=== PATIENT | male | born 1975 | race Hispanic/Latino ===

== ENCOUNTER 2016-08-07 16:08 | Inpatient (IN) | payer OTHER ==
[~2016-08-07] VITALS: Ht 175.3 cm; Wt 79.4 kg
[~2016-08-07 16:08] MED LIST: AMBIEN 10MG10 MG PO; ATORVASTATIN CA40 MG PO; BENZTROPINE MESY2 M1 PO; CLONAZEPAM1 M2 PO; CLOPIDOGREL75 MG PO; CYCLOBENZAPRINE5 M1 PO; DIVALPROEX SOD500 MG PO; ENSURE PLUS 23237 ML PO; FLONASE120 SPRAY/ NASB; FOLIC ACID 1 MG PO; INVEGA6 MG PO; LOVENOX120 MG/0.1 SQ; METOPROLOL TART25 M1 PO; NEXIUM 40MG40 MG PO; PATANOL 5 ML5 ML OPH; PERCOCET 325 MG1 TA2 PO; PERCOCET 5-3251 EACH PO; PRINIVIL 5MG5 MG PO; SEROQUEL 100MG100 MG PO; STROVITE ONE1 TAB PO; TRAMADOL HCL E100 MG PO; TRAMADOL HCL50 M1 PO; TRAMADOL50 MG PO; VENLAFAXINE HYD75 M1 PO; VESICARE 10MG10 MG PO; WARFARIN SODIUM5 M1 PO; XARELTO20 M1 PO
--- NOTE | 2016-08-07 16:24 | NUR ---
RECEIVED 41 YO MALE BIBA FROM HOME WITH HX OF CAD, CABG WITH C/O NON-RADIATING LEFT SIDED CHEST PAIN X ONE HOUR. PT ALSO HAS HX OF DVT AND S/O BILATERAL LOWER EXTREMITY PAIN AND SWELLING. PT STATES PAIN FEELS LIKE ITS A DVT.
[2016-08-07] MEDS ORDERED: TRAMADOL HCL E100 MG PO (16:30)
[2016-08-07] MEDS ORDERED: STROVITE ONE C1 EACH PO (16:30)
[2016-08-07] MEDS ORDERED: OXYCODONE-ACET1 EACH PO (16:30)
[2016-08-07] MEDS ORDERED: FOLIC ACID1 M1 PO (16:31)
--- NOTE | 2016-08-07 16:59 | ED CARDIAC/CP/PALPITATIONS ---
History of Present Illness General Chief Complaint: Chest Pain Stated Complaint: BIBA FOR CHEST PAIN Source: patient, old records Exam Limitations: no limitations Vital Signs & Intake/Output Vital Signs & Intake/Output Vital Signs Date Time Temp Pulse Resp B/P Pulse O2 O2 Flow FiO2 Ox Delivery Rate 08/08 0130 54 130/90 08/08 0035 98.2 62 20 130/90 98 Room Air 08/07 2302 98.6 72 20 139/86 95 Room Air 08/07 2104 66 16 158/92 98 Room Air 08/07 1902 98 Room Air 08/07 1818 96.1 53 16 125/73 100 Room Air 08/07 1623 96.2 62 20 154/88 99 Room Air ED Intake and Output 08/08 0000 08/07 1200 Intake Total 0 Output Total Balance 0 Intake, IV 0 Patient 175 lb Weight Allergies Coded Allergies: hydrocodone (PER PT FEELS DIZZY 06/03/16) ketorolac (From TORADOL) (PER PT "FEEL PAIN AND SHAKEY" 06/03/16) nitroglycerin (From NITRO-BID) (PER PT "MY BODY FEELS FUNNY AND MY HEAD GONNA EXPLODE UP" 06/03/16) Triage Note: RECEIVED 41 YO MALE BIBA FROM HOME WITH HX OF CAD, CABG WITH C/O NON-RADIATING LEFT SIDED CHEST PAIN X ONE HOUR. PT ALSO HAS HX OF DVT AND S/O BILATERAL LOWER EXTREMITY PAIN AND SWELLING. PT STATES PAIN FEELS LIKE ITS A DVT. Triage Nurses Notes Reviewed? yes HPI: Patient is a 41 year old male presents complaining of sharp left sided chest pain and bilateral lower extremity pain. Leg pain onset yesterday, chest pain onset approximately 40 minutes prior to arrival. Pain is a sharp pain radiates to the left shoulder, no exacerbating or allevaiting factors. Chest pain is currently moderate. Patient took Percocet yesterday with moderate improvement of his leg pain, has not taken any medication today for his symptoms. Leg pain feels similar to previos DVT. Currently on Coumadin, reports he has been compliant with his regimen. Leg pain increases with exertion, no change in his chest pain with ambulation. No current dyspnea. (FRANKI LYONS,HARRIS) Reconcile Medications Atorvastatin Calcium (Lipitor) 40 MG TAB 1 TAB PO DAILY CHOLESTEROL (Reported ) Benztropine Mesylate 2 MG TABLET 1 TAB PO BID MENTAL HEALTH (Reported) Clonazepam 1 MG TABLET 1 TAB PO BID ANXIETY (Reported) CYCLOBENZAPRINE HCL (Cyclobenzaprine Hydrochloride) 5 MG TAB 1 TAB PO TID PRN MUSCLE SPASMS (Reported) Divalproex Sodium (Divalproex Sodium ER) [address] 1 TAB PO BID MENTAL HEALTH (Reported) Esomeprazole (Nexium) 40 MG CAP 1 PAC PO DAILY GI (Reported) Folic Acid 1 MG TABLET 1 TAB PO DAILY SUPPLEMENT (Reported) LACTOSE-REDUCED FOOD (Ensure Plus 237 Ml) 237 ML LIQ 237 ML PO DAILY SUPPLEMENT (Reported) Lisinopril (Prinivil) 5 MG TAB 1 TAB PO DAILY BP (Reported) Metoprolol Tartrate 25 MG TABLET 1 TAB PO BID HEART (Reported) Mv,Min #10/FA/D3/Alip Acid/Lut (Strovite One Caplet) 1 MG-1,000 UNIT-15 MG-5 MG TABLET 1 TAB PO DAILY SUPPLEMENT (Reported) Paliperidone (Invega) 6 MG TAB.ER.24 1 TAB PO QPM MENTAL HEALTH (Reported) Quetiapine Fumarate (Seroquel) 100 MG TAB 1 TAB PO QHS SLEEP (Reported) Solifenacin Succinate (Vesicare) 10 MG TAB 1 TAB PO QHS BLADDER (Reported) Tramadol HCl (Tramadol HCl ER) 100 MG TAB.ER.24H 1 TAB PO DAILY PAIN ( Reported) VENLAFAXINE HCL (Venlafaxine HCl ER) 75 MG CER 1 CAP PO DAILY MENTAL HEALTH ( Reported) Warfarin Sodium 5 MG TABLET 1 TAB PO 1700 BLOOD THINNER (Reported) Zolpidem Tartrate (Ambien 10MG) 10 MG TAB 1 TAB PO QPM SLEEP (Reported) (KIM QUILES,FAITH Lyon) Past History Travel History Traveled to [place] past 21 day No Medical History Any Pertinent Medical History? 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 FATHER (Cardiac disease). FATHER (Stroke/CVA). Hx Contributory? Yes (HARRIS KOHLER) Review of Systems Review of Systems Constitutional: Denies: chills, fever. EENTM: Reports: no symptoms. Respiratory: Denies: cough, short of breath. Cardiovascular: Reports: see HPI. GI: Denies: abdominal pain, nausea, vomiting. Genitourinary: Reports: no symptoms. Musculoskeletal: Reports: see HPI. Denies: back pain, neck pain. Skin: Reports: no symptoms. Neurological/Psychological: Denies: headache, numbness. Hematologic/Endocrine: Denies: bruising, bleeding. Immunologic/Allergic: Denies: splenectomy. (HARRIS KOHLER) Physical Exam Physical Exam General Appearance: well developed/nourished, alert, awake Head: atraumatic, normal appearance Eyes: Bilateral: normal appearance, PERRL, EOMI. Ears, Nose, Throat: normal pharynx, normal ENT inspection, hearing grossly normal Neck: normal inspection, supple, full range of motion Respiratory: normal breath sounds, chest non-tender, no respiratory distress, lungs clear Cardiovascular: regular rate/rhythm (occasional premature beat), no appreciable murmur Peripheral Pulses: 2+ radial (R), 2+ radial (L), 2+ dorsalis pedis (R), 2+ dorsalis pedis (L) Gastrointestinal: soft, non-tender Back: normal inspection, normal range of motion Extremities: normal inspection, normal capillary refill, normal range of motion, trace bilateral lower extremity edema Neurologic/Psych: no motor/sensory deficits, awake, alert, oriented x 3 Skin: intact, normal color, warm/dry Lymphatic: no anterior cervical duane Core Measures ACS in differential dx? Yes ASA ordered for poss ACS? No-d/t known allergy Severe Sepsis Present: No Septic Shock Present: No (HARRIS KOHLER) Progress Differential Diagnosis: AMI, aortic dissection, CHF/pulm edema, costochondritis, musculoskeletal pain, myocarditis, pericarditis, pneumonia, pneumothorax, PSVT, pulmonary embolism, PUD/GERD, sepsis, unstable angina, V-fib/V-Tach, DVT, drug- seeking Plan of Care: Orders Procedure Date/time Status Heart Healthy Diet 08/08 B Active TROPONIN LEVEL 08/08 0600 Active PROTHROMBIN TIME 08/08 0600 Active CBC WITHOUT DIFFERENTIAL 08/08 06 Active BASIC ELECTROLYTES PLUS BUN&CR 08/08 0600 Active EKG 08/08 0600 Active PARTIAL THROMBOPLASTIN TIME 08/08 0330 Active Pathway - chart 08/07 2358 Active House Staff 08/07 2358 Active Code Status 08/07 2358 Active TROPONIN LEVEL 08/07 2354 Complete EKG 08/07 2354 Active Vital Signs 08/07 2344 Active Teach/Educate 08/07 2344 Active Nutritional Intake, Monitor 08/07 2344 Active Isolation 08/07 2344 Active Intake & Output 08/07 2344 Active Patient Care Conference 08/07 2344 Active Activity/Ambulation 08/07 2344 Active Patient Data 08/07 2153 Active D-DIMER 08/07 2055 Complete Add-on Test (ER Only) 08/07 2035 Active Saline Lock 08/07 2026 Active Misc Message 08/07 2026 Active ED Holding Orders 08/07 2026 Active Admit to inpatient 08/07 2026 Active Vital Signs 08/07 202 Active Code Status 08/07 202 Complete Intake & Output 08/07 1830 Active PARTIAL THROMBOPLASTIN TIME 08/07 1812 Complete Telemetry/Fitness Centre Manager 08/07 1659 Active URINE DRUG SCREEN FOR ER ONLY 08/07 1659 Complete TROPONIN LEVEL 08/07 1659 Complete PROTHROMBIN TIME 08/07 1659 Complete COMPREHENSIVE METABOLIC PANEL 08/07 1659 Complete CBC WITHOUT DIFFERENTIAL 08/07 1659 Complete EKG 08/07 1609 Active Current Medications Sig/Aly Start time Last Medication Dose Stop Time Status Admin Oxybutynin Chloride 10 MG QPM 08/08 2200 AC (Ditropan) Atorvastatin Calcium 40 MG DAILY 08/08 1000 AC (Lipitor) Benztropine Mesylate 2 MG BID 08/08 1000 AC (Cogentin 1 MG Tablet) Folic Acid 1 MG DAILY 08/08 1000 AC (Folic Acid) Lisinopril 5 MG DAILY 08/08 1000 AC (Prinivil) Multivitamins 1 TAB DAILY 12/31 1000 AC (Theragran Vitamins) Venlafaxine HCl 75 MG DAILY 08/08 1000 AC (Effexor Xr) Omeprazole 40 MG DAILY AC 08/08 0700 AC (Prilosec) Metoprolol Tartrate 25 MG BID 08/07 2347 AC (Lopressor) Cyclobenzaprine HCl 5 MG TIDPRN PRN 08/07 234 AC (Flexeril 5MG Tab) Sodium Chloride 1,000 ML Q10H 08/07 2345 AC (Normal Saline 0.9%) 08/08 0944 Morphine Sulfate 2 MG ONCE ONE 08/07 1700 CAN (Morphine) 08/07 170 Laboratory Tests 08/08/16 0055: Troponin I < 0.01 08/07/162054: D-Dimer < 200 08/07/161811: Anion Gap 16, Estimated GFR > 60, BUN/Creatinine Ratio 16.2, Glucose 77, Calcium 10.2, Total Bilirubin 0.8, AST 54, ALT 46, Alkaline Phosphatase 53, Troponin I < 0.01, Total Protein 10.1 H, Albumin 5.5 H, Globulin 4.6 H, Albumin/Globulin Ratio 1.2, PT 19.1 H, INR 1.83 H, APTT 27, CBC w Diff NO MAN DIFF REQ, RBC 4.67 L, MCV 88.3, MCH 29.1, RDW 15.0 H, Gran % 62.6, Lymphocytes % 29.2, Monocytes % 6.7, Eosinophils % 1.2, Basophils % 0.3, Absolute Granulocytes 3.9, Absolute Lymphocytes 1.8, Absolute Monocytes 0.4, Absolute Eosinophils 0.1, Absolute Basophils 0, PUBS MCHC 33.0 08/07/16 170: Urine Opiates Screen < 100.00, Methadone Screen < 40, Barbiturate Screen < 60, Ur Phencyclidine Scrn < 6.00, Amphetamines Screen < 100, U Benzodiazepines Scrn < 85, Urine Cocaine Screen < 50, Urine Cannabis Screen < 5.00 1930: Results of labs and ultrasound discussed with patient. CTA ordered due to worsening dvt and patient's episode of sharp chest pain. Heparin ordered for treatment of patient's DVT. Patient subtherapeutic INR currently. Unclear if DVT is worse due to subtherapeutic INR or if patient is failing coumadin therapy. Will start on heaprin and admit to rule out ACS and for further treatment of his DVT. Dr. Christiansen discussed patient with Dr. Robison for admission. (FRANKI LYONS,HARRIS) Diagnostic Imaging: Viewed by Me: Ultrasound. Discussed w/RAD: Ultrasound. Radiology Impression: PATIENT: DEION TABARES PRESENT AGE: 41 PATIENT ACCOUNT NO: [id number] : 73 LOCATION: [facility] ORDERING PHYSICIAN: HARRIS LYONS SERVICE DATE: 08/07/16 EXAM TYPE: US - US-EXT BILAT VENOUS DOPPLER EXAMINATION: US TRIPLEX LOWER EXTREMITY, BILATERAL CLINICAL INFORMATION: Bilateral lower extremity pain with history of DVT. COMPARISON: Doppler ultrasound 11/29/2015. TECHNIQUE: Color-flow triplex imaging with spectral analysis and compression Doppler were performed on the bilateral lower extremities. FINDINGS: Partially occlusive deep venous thrombosis extending from the right lower femoral vein to the right common femoral vein. No residual deep venous thrombosis within the right popliteal vein which was seen on the previous study. The remaining veins of the right lower extremity are patent. Partially occlusive deep venous thrombosis extending from the left popliteal vein to the left common femoral vein. DVT on the previous examination extending to the level of the upper left femoral vein and is slightly progressed since that time. IMPRESSION: Redemonstrated bilateral partially occlusive deep venous thrombosis, slightly improved within the right lower extremity and slightly progressed within the left lower extremity as discussed above. DICTATED BY: ELIOT LOTT MD DATE/TIME DICTATED:08/07/161899 STRATEGIC INTELLIGENCE OFFICER:SANDI DATE/TIME TRANSCRIBED:08/07/161899 CONFIDENTIAL, DO NOT COPY WITHOUT APPROPRIATE AUTHORIZATION. <Electronically signed in Other Vendor System> SIGNED BY: ELIOT LOTT MD 08/07/161916, PATIENT: DEION TABARES PRESENT AGE: 41 PATIENT ACCOUNT NO: [id number] : 73 LOCATION: [facility] ORDERING PHYSICIAN: HARRIS LYONS SERVICE DATE: 08/07/16 EXAM TYPE: CAT - CTA CHEST- PULMONARY EMBOLISM EXAMINATION: CT ANGIOGRAM OF THE CHEST WITH AND WITHOUT CONTRAST (CT PULMONARY ANGIOGRAM FOR PE) CLINICAL INFORMATION: Chest pain COMPARISON: Portable chest 08/07/2016 TECHNIQUE: Prior to contrast administration, noncontrast localization images were obtained. Subsequently, multidetector volumetric imaging was performed from the thoracic inlet to below the diaphragms following the administration of 73 mL Optiray 320 intravenous contrast. No contrast reaction reported Sagittal, coronal, and MIP oblique sagittal reformatted images were obtained on the CT workstation, uploaded to PACS, and reviewed. Total exam dose-length product 402.3 mGy-cm FINDINGS: QUALITY OF STUDY/CONTRAST BOLUS: Satisfactory. PULMONARY ARTERIES: No central or segmental pulmonary emboli. THORACIC AORTA: No aneurysm or dissection. LUNG: No focal consolidation, nodules or masses. No acute infiltrate. There is a small linear scar at the anterior right middle lobe. PLEURA: No pleural effusion or pneumothorax. MEDIASTINUM: Normal heart size. No pericardial effusion. No hilar or mediastinal lymphadenopathy. No evidence of septal bowing or right heart strain. CHEST WALL/AXILLA: No axillary or internal mammary lymphadenopathy. OSSEOUS STRUCTURES: Status post median sternotomy. UPPER ABDOMEN: Unremarkable. No reflux of contrast into the hepatic veins to suggest elevated right heart pressures. IMPRESSION: No evidence of pulmonary embolism. No acute change of the chest. VTE: negative DICTATED BY: NORMAN PANIAGUA MD DATE/ TIME DICTATED:08/07/162041 STRATEGIC INTELLIGENCE OFFICER:SANDI DATE/TIME TRANSCRIBED: 08/07/162041 CONFIDENTIAL, DO NOT COPY WITHOUT APPROPRIATE AUTHORIZATION. < Electronically signed in Other Vendor System> SIGNED BY: NORMAN PANIAGUA MD 2049 CXR Impression: PATIENT: DEION TABARES PRESENT AGE : 41 PATIENT ACCOUNT NO: [id number] : 73 LOCATION: [facility] ORDERING PHYSICIAN: HARRIS LYONS SERVICE DATE: 08/07/16 EXAM TYPE: RAD - XRY-PORTABLE CHEST XRAY EXAMINATION: XR PORTABLE CHEST CLINICAL INFORMATION: Chest pain COMPARISON: Chest x-ray 06/03/2016 TECHNIQUE: Portable view of the chest was obtained. 5:32 PM FINDINGS: Status post median sternotomy. Heart size is normal. No pulmonary vascular congestion. Lungs are clear. No pleural effusion or pneumothorax. IMPRESSION: No acute abnormality of the chest. DICTATED BY: NORMAN PANIAGUA MD DATE/TIME DICTATED:08/07/161743 STRATEGIC INTELLIGENCE OFFICER :CHAVEZ DATE/TIME TRANSCRIBED:08/07/161743 CONFIDENTIAL, DO NOT COPY WITHOUT APPROPRIATE AUTHORIZATION. <Electronically signed in Other Vendor System> SIGNED BY: NORMAN PANIAGUA MD 08/07/16 2087 Initial ED EKG: normal sinus rhythm approximately 60 bpm, normal axis, normal intervals, 2 pvc's present. no acute st/t wave changes compared to previous ekg. Prior EKG: unchanged Rhythm Strip: normal sinus rhythm (HARRIS KOHLER) Departure Departure Disposition: STILL A PATIENT Condition: Stable Clinical Impression Primary Impression: DVT (deep venous thrombosis) Qualifiers: DVT location: lower extremity Affected thrombotic vein of extremity : unspecified lower extremity proximal vein Laterality: bilateral Chronicity: unspecified Qualified Code: I82.4Y3 - Acute embolism and thrombosis of unspecified deep veins of proximal lower extremity, bilateral Secondary Impressions: Chest pain syndrome Referrals: KIMBERLY TABARES MD (PCP/Family) Referred to [facility] as new patient No Departure Forms: Customer Survey General Discharge Information Admission Note Spoke With: KESHIA ROBISON MD Documentation of Exam: Documentation of any treatments & extenuating circumstances including Concerns Regarding Discharge (functional status, medication knowledge or non-compliance, living conditions, etc.) that warrant an admission rather than observation: Serial EKG, serial troponins, continuous cardiac monitoring, IV heparin as patient is on coumadin, cardiology consultation. Consider vascular or hematology consultation (HARRIS KOHLER) PA/MANAGER OPERATIONS RESEARCH Co-Sign Statement Statement: ED Attending supervision documentation- [] I saw and evaluated the patient. I have also reviewed all the pertinent lab results and diagnostic results. I agree with the findings and the plan of care as documented in the PA's/MANAGER OPERATIONS RESEARCH's documentation. [x] I have reviewed the ED Record and agree with the PA's/MANAGER OPERATIONS RESEARCH's documentation. [] Additions or exceptions (if any) to the PAs/MANAGER OPERATIONS RESEARCH's note and plan are summarized below: [] (KIM QUILES,FAITH Lyon) Critical Care Note Critical Care Note Critical Care Time: non-applicable (HARRIS KOHLER) ED Attending supervision documentation- [] I saw and evaluated the patient. I have also reviewed all the pertinent lab results and diagnostic results. I agree with the findings and the plan of care as documented in the PA's/MANAGER OPERATIONS RESEARCH's documentation. [x] I have reviewed the ED Record and agree with the PA's/MANAGER OPERATIONS RESEARCH's documentation. [] Additions or exceptions (if any) to the PAs/MANAGER OPERATIONS RESEARCH's note and plan are summarized below: [] (KIM QUILES,FAITH Lyon) Critical Care Note Critical Care Note Critical Care Time: non-applicable (FRANKI LYONS,HARRIS)
--- NOTE | 2016-08-07 17:03 | NUR ---
PT EVALUATED BY PADMINI LYONS
--- NOTE | 2016-08-07 17:48 | RADIOLOGY REPORT ---
EXAMINATION: XR PORTABLE CHEST CLINICAL INFORMATION: Chest pain COMPARISON: Chest x-ray 06/03/2016 TECHNIQUE: Portable view of the chest was obtained. 5:32 PM FINDINGS: Status post median sternotomy. Heart size is normal. No pulmonary vascular congestion. Lungs are clear. No pleural effusion or pneumothorax. IMPRESSION: No acute abnormality of the chest.
--- NOTE | 2016-08-07 18:18 | NUR ---
BLOOD DRAWN DIRECTED BY DELORES Pal RN UNABLE TO PLACE IV BY THIS RN AND DELORES Pal RN
--- NOTE | 2016-08-07 18:36 | NUR ---
PT SENT TO [facility]
[2016-08-07 18:44] LABS: ABSOLUTE BASOPHIL COUNT 0 /CUMM (0.0-0.2); ABSOLUTE EOSINOPHIL COUNT 0.1 /CUMM (0.0-0.7); ABSOLUTE GRANULOCYTE CT 3.9 /CUMM (1.4-6.5); ABSOLUTE LYMPH COUNT 1.8 /CUMM (1.2-3.4); ABSOLUTE MONOCYTE COUNT 0.4 /CUMM (0.10-0.60); BASOPHIL % 0.3 % (0.0-2.0); EOSINOPHIL % 1.2 % (0-5); GRANULOCYTE % 62.6 % (42.2-75.2); HEMATOCRIT 41.2 % (42-52); MEAN CORPUSCULAR HGB 29.1 PG (27.0-31.0); MEAN CORPUSCULAR VOLUME 88.3 FL (80.0-94.0); RED BLOOD CELL CT 4.67 /CUMM (4.70-6.10); WHITE BLOOD CELL COUNT 6.2 /CUMM (4.8-10.8)
[2016-08-07 18:49] LABS: PT 19.1 SEC (9.4-12.5)
--- NOTE | 2016-08-07 19:01 | NUR ---
PT BACK FROM [facility] PT MEDICATED WITH 2 MG MORPHINE IM FOR PAIN
--- NOTE | 2016-08-07 19:17 | ULTRASOUND REPORT ---
EXAMINATION: US TRIPLEX LOWER EXTREMITY, BILATERAL CLINICAL INFORMATION: Bilateral lower extremity pain with history of DVT. COMPARISON: Doppler ultrasound 11/29/2015. TECHNIQUE: Color-flow triplex imaging with spectral analysis and compression Doppler were performed on the bilateral lower extremities. FINDINGS: Partially occlusive deep venous thrombosis extending from the right lower femoral vein to the right common femoral vein. No residual deep venous thrombosis within the right popliteal vein which was seen on the previous study. The remaining veins of the right lower extremity are patent. Partially occlusive deep venous thrombosis extending from the left popliteal vein to the left common femoral vein. DVT on the previous examination extending to the level of the upper left femoral vein and is slightly progressed since that time. IMPRESSION: Redemonstrated bilateral partially occlusive deep venous thrombosis, slightly improved within the right lower extremity and slightly progressed within the left lower extremity as discussed above.
--- NOTE | 2016-08-07 20:50 | CT SCAN REPORT ---
EXAMINATION: CT ANGIOGRAM OF THE CHEST WITH AND WITHOUT CONTRAST (CT PULMONARY ANGIOGRAM FOR PE) CLINICAL INFORMATION: Chest pain COMPARISON: Portable chest 08/07/2016 TECHNIQUE: Prior to contrast administration, noncontrast localization images were obtained. Subsequently, multidetector volumetric imaging was performed from the thoracic inlet to below the diaphragms following the administration of 73 mL Optiray 320 intravenous contrast. No contrast reaction reported Sagittal, coronal, and MIP oblique sagittal reformatted images were obtained on the CT workstation, uploaded to PACS, and reviewed. Total exam dose-length product 402.3 mGy-cm FINDINGS: QUALITY OF STUDY/CONTRAST BOLUS: Satisfactory. PULMONARY ARTERIES: No central or segmental pulmonary emboli. THORACIC AORTA: No aneurysm or dissection. LUNG: No focal consolidation, nodules or masses. No acute infiltrate. There is a small linear scar at the anterior right middle lobe. PLEURA: No pleural effusion or pneumothorax. MEDIASTINUM: Normal heart size. No pericardial effusion. No hilar or mediastinal lymphadenopathy. No evidence of septal bowing or right heart strain. CHEST WALL/AXILLA: No axillary or internal mammary lymphadenopathy. OSSEOUS STRUCTURES: Status post median sternotomy. UPPER ABDOMEN: Unremarkable. No reflux of contrast into the hepatic veins to suggest elevated right heart pressures. IMPRESSION: No evidence of pulmonary embolism. No acute change of the chest. VTE: negative
[2016-08-07 20:55] LABS: PTT 27 SEC (25-37)
--- NOTE | 2016-08-07 21:25 | NUR ---
HEPARIN DRIP STARTED. PT MEDICATED WITH 5000 UNITS HEPARIN IV AND HEPARIN DRIP STARTED AT 1300 UNITS/HR PER ORDERS.
--- NOTE | 2016-08-07 22:11 | NUR ---
PT GOING TO ROOM 180-2.
--- NOTE | 2016-08-07 22:18 | History & Physical ---
WEN SAMUEL MD 08/07/16 2212: General Information and HPI Source of Information: patient, old records Exam Limitations: no limitations History of Present Illness: Patient is a 41-year-old male, with past medical history of CVA residue left upper limb weakness, coronary artery disease status post stent placement in 2004 , CABG, mitral valve repair in 2000, infective endocarditis, aortic valve surgery in 2004, IV drug abuse, hepatitis C , DVT status post IVC filter placement , presented with chief complaints of left-sided chest pain and bilateral lower extremities pain since a day. He has lower leg pain, started a day ago , similar to previous DVT, took Percocet for it with slight improvement. Presently on, coumadin therapy. He is following coumadin clinic every weekly He was going to [place] and he started having chest pain . The chest pain was sharp in nature, located in the left side of the chest, radiating to left shoulder. There is no aggravating and relieving factors. At the time of examination it was moderte 5/10. Patient also complaining of dry cough, shortness of breath, abdominal pain, swelling in the legs, chills. He denies fever, dizziness, new neurological deficit, blurry vision, difficulty in swallowing, incontinence of stool and the urine, diarrhea, constipation. According to him, hepatitis C is cured as he took complete 1 year of treatment. He also claims that he has history of antiphospholipid antibody syndrome for which he is following Dr. Felix Ennis at [place]. Personal history -denies smoking Allergies- aspirin(rash), nitroglycerin Family history -brother/father/mother of NE; mother had bipolar disorder. Allergies/Medications Allergies: Coded Allergies: hydrocodone (PER PT FEELS DIZZY 06/03/16) ketorolac (From TORADOL) (PER PT "FEEL PAIN AND SHAKEY" 06/03/16) nitroglycerin (From NITRO-BID) (PER PT "MY BODY FEELS FUNNY AND MY HEAD GONNA EXPLODE UP" 06/03/16) Home Med list Atorvastatin Calcium (Lipitor) 40 MG TAB 1 TAB PO DAILY CHOLESTEROL (Reported ) Benztropine Mesylate 2 MG TABLET 1 TAB PO BID MENTAL HEALTH (Reported) Clonazepam 1 MG TABLET 1 TAB PO BID ANXIETY (Reported) CYCLOBENZAPRINE HCL (Cyclobenzaprine Hydrochloride) 5 MG TAB 1 TAB PO TID PRN MUSCLE SPASMS (Reported) Divalproex Sodium (Divalproex Sodium ER) [address] 1 TAB PO BID MENTAL HEALTH (Reported) Esomeprazole (Nexium) 40 MG CAP 1 PAC PO DAILY GI (Reported) Folic Acid 1 MG TABLET 1 TAB PO DAILY SUPPLEMENT (Reported) LACTOSE-REDUCED FOOD (Ensure Plus 237 Ml) 237 ML LIQ 237 ML PO DAILY SUPPLEMENT (Reported) Lisinopril (Prinivil) 5 MG TAB 1 TAB PO DAILY BP (Reported) Metoprolol Tartrate 25 MG TABLET 1 TAB PO BID HEART (Reported) Mv,Min #10/FA/D3/Alip Acid/Lut (Strovite One Caplet) 1 MG-1,000 UNIT-15 MG-5 MG TABLET 1 TAB PO DAILY SUPPLEMENT (Reported) Paliperidone (Invega) 6 MG TAB.ER.24 1 TAB PO QPM MENTAL HEALTH (Reported) Quetiapine Fumarate (Seroquel) 100 MG TAB 1 TAB PO QHS SLEEP (Reported) Solifenacin Succinate (Vesicare) 10 MG TAB 1 TAB PO QHS BLADDER (Reported) Tramadol HCl (Tramadol HCl ER) 100 MG TAB.ER.24H 1 TAB PO DAILY PAIN ( Reported) VENLAFAXINE HCL (Venlafaxine HCl ER) 75 MG CER 1 CAP PO DAILY MENTAL HEALTH ( Reported) Warfarin Sodium 5 MG TABLET 1 TAB PO 1700 BLOOD THINNER (Reported) Zolpidem Tartrate (Ambien 10MG) 10 MG TAB 1 TAB PO QPM SLEEP (Reported) Past History Travel History Traveled to [place] past 21 day No Medical History Neurological: NONE (lue weakness), CVA EENT: NONE Cardiovascular: CAD, hypertension, myocardial infarction, MITRAL VALVE REPAIR CABG AORTIC VALVE REPAIR INFECTIVE ENDOCARDITIS Hyperlipidemia DVT Respiratory: NONE Gastrointestinal: RECTAL BLEEDING IN PAST Hepatic: NONE Renal: NONE Musculoskeletal: NONE Psychiatric: anxiety, bipolar disease, IV drug abuse Endocrine: NONE Blood Disorders: DVT Cancer(s): NONE [employer]/Reproductive: NONE History of MRSA: No History of VRE: No History of CDIFF: No Pneumonia Vaccine: 06/23/11 Influenza Vaccine: 04/23/16 Surgical History Surgical History: CABG IN 2004 mitral valve repair IVC filter placement Past Family/Social History Family History Relations & Conditions if any BROTHER (PE). FATHER (Cardiac disease). FATHER (Stroke/CVA). Psychosocial History Who Do You Live With? spouse Services at Home: None Illicit Drug Use: denies illicit drug use Functional Ability ADLs Independent: dressing, eating, toileting, bathing. Ambulation: independent IADLs Independent: shopping, housework, finances, food prep, telephone, transportation , medication admin. Review of Systems Review of Systems Constitutional: Reports: chills, malaise, weakness. Denies: diaphoresis, fever, unexplained weight loss. EENTM: Denies: blurred vision, double vision. Cardiovascular: Reports: chest pain, edema, palpitations, peripheral edema. Respiratory: Reports: cough, short of breath. Denies: hemoptysis, orthopnea, sputum production, stridor, wheezing. GI: Reports: abdominal pain. Denies: bloating, constipation, diarrhea, distention, nausea, changes in stool. Genitourinary: Denies: no symptoms. Musculoskeletal: Denies: no symptoms. Skin: Denies: no symptoms. Neurological/Psychological: Denies: anxiety, ataxia, cognitive dysfunction, confusion, depressed, dementia. Exam & Diagnostic Data Last 24 Hrs of Vital Signs/I&O Vital Signs Date Time Temp Pulse Resp B/P Pulse O2 O2 Flow FiO2 Ox Delivery Rate 08/08 0130 54 130/90 08/08 0035 98.2 62 20 130/90 98 Room Air 08/07 2302 98.6 72 20 139/86 95 Room Air 08/07 2104 66 16 158/92 98 Room Air 08/07 1902 98 Room Air 08/07 1818 96.1 53 16 125/73 100 Room Air 08/07 1623 96.2 62 20 154/88 99 Room Air Intake & Output 08/08 0800 08/08 0000 08/07 1600 Intake Total 0 Output Total Balance 0 Intake, IV 0 Patient 79.379 kg Weight Physical Exam General Appearance Alert, Oriented X3, Cooperative, No Acute Distress Skin No Rashes, No Breakdown HEENT Atraumatic, PERRLA, EOMI Neck Supple, No JVD Cardiovascular Regular Rate, Normal S1, Normal S2 Lungs Clear to Auscultation, Normal Air Movement Abdomen Soft, No Tenderness Neurological Normal Gait, Normal Speech, Strength at 5/5 X4 Ext, Normal Tone, Sensation Intact, Weakness in left upper limb Extremities No Clubbing, No Cyanosis, mild pitting edema Vascular Normal Pulses Assessment/Plan Assessment: Assessment and plan - Vital signs at the time of admission - temperature 96.2, blood pressure 150/88, respiratory rate twenties, pulse 62, SPO2 99%. Chest x-ray -No acute abnormality of the chest Venous Doppler of lower extremity -Redemonstrated bilateral partially occlusive DVT, slightly improved within the RLE and slightly progressed within the LLE. CTA -No evidence of pulmonary embolism. No acute change of the chest. Problem list - Acute chest pain under evaluation DVT status post IVC filter placement CAD s/p stent placement in 2004, Hypertension history of CVA, IV drug abuse, hepatitis C Depression Anxiety Bipolar Insomnia GERD Plan - Acute chest pain under evaluation - * CTshows no evidence of Pulmonary embolus * We will do serial EKGs/troponins to rule out acute current syndrome * We will start patient on IV heparin * We will give nitroglycerin as needed * Patient is allergic to aspirin so we'll continue him on clopidogrel DVT * Patient is on coumadin therapy, he is following, Coumadin clinic every weekly. Last INR 2.7. * Despite, Coumadinslightly DVT is slightly progressed within the LLE. * PT/INR-19.1/1.83 * We will continue IV heparin drip and regularly monitor, APTT * We will follow up with locomotive crane operator helper for treatment of recurrent DVT Depression/anxiety/bipolar/insomnia - * Continue all home medication including venlafaxine/benztropine/clonazepam/ Depakote/Seroquel/zolpidem. Prerenal FLO * BUN is 21/creatinine is 1.3, high protein. * We will give IV fluids * we will regularly follow the creatinine Hypertension * We will continue metoprolol and lisinopril Hyperlipidemia * Continue high-dose statin GERD * We'll continue omeprazole Diet -heart healthy diet DVT prophylaxis- ALP S/heparin CODE STATUS-full code As Ranked By This Provider Problem List: 1. DVT (deep venous thrombosis) Qualifiers DVT location: lower extremity Affected thrombotic vein of extremity: unspecified lower extremity proximal vein Laterality: bilateral Chronicity: unspecified Qualified Code: I82.4Y3 - Acute embolism and thrombosis of unspecified deep veins of proximal lower extremity, bilateral 2. Rectal bleeding 3. Atypical chest pain 4. Anti-phospholipid antibody syndrome 5. s/p IVC filter placement 6. hx of hepatitis C 7. Cocaine abuse 8. Bipolar disorder Core Measures/Miscellaneous Acute Coronary Syndrome ACS Diagnosis: No Cerebrovascular Accident CVA/TIA Diagnosis: No Congestive Heart Failure CHF Diagnosis: No Venous Thromboembolism VTE Risk Factors: Age > 40 VTE Prophylaxis Ordered Inpt: Mechanical (ALPS/TEDS) [facility] prophylaxis d/t: No contraindications No VTE Pharm Prophylaxis d/t: No contraindications VTE Diagnosis: Yes VTE Type: Deep Venous Thrombosis VTE Confirmed by (Test): DUPLEX VENOUS EXTREM UNI Severe Sepsis Severe Sepsis Present: No Septic Shock Septic Shock Present: No Miscellaneous Documentation Attending Case Discussed With: KESHIA REYES MD Primary Care Physician: KIMBERLY TABARES MD Patient sees these Specialists cardiology Level of Patient Care: Telemetry FELIX PAYNE 08/08/16 0122: Resident Review Statement Resident Statement: examined this patient, discussed with internal revenue service agent, agreed with internal revenue service agent, reviewed EMR data (avail), reviewed images, amended to note Other Findings: 31-year-old man with past medical history of DVT with IVC filter, questionable antiphospholipid syndrome, CVA, 2 episodes of NE, CABG?, Mitral valve replacements.IV drug abuse, hepatitis C (treated) came with chief complaint of leg pain and chest pain. He gives a peculiar similar history which was given 6 months ago at [facility] with the same gradient of chest pain and leg pain. He reports he was on way to [place] when he was taking a train, suddenly he started having 10 out of 10 chest sharp chest pain radiating to the left arm associated with nausea, 2 episodes of vomiting, shortness of breath, dizziness, mild cough. patient also reports of having bilateral leg pain started one day ago, which is unbearable. Patient's denies to me about going to another acute care facility or getting Percocet yesterday, however looking at the CMR it is revealed that he was [facility] emergency room yesterday and he took 15 pills of Percocet from pharmacy. Patient denies any fevers but he reports having chills. [employer] Dr. Yoder and PCP is Dr. Tabares vital signs admissions blood pressure 154/88, RR 20, HI 62, O2 saturation 99% unremarkable temp 96.2 HEENT Atraumatic, PERRLA, EOMI Neck Supple, No JVD, No thryomegaly Lymphatic Cervical nl Cardiovascular Regular Rate, Normal S1, Normal S2 Lungs Clear to Auscultation, Normal Air Movement Abdomen Normal Bowel Sounds, Soft, Extremities No Clubbing, No Cyanosis, +1 bilateral Edema,Normal Pulses Hemoglobin 13.6, creatinine 1.3, INR 183, d-dimer less than 200 eKG NSR, no acute ST-T changes comparing to previous EKG,PVC LEG Doppler ultrasound Redemonstrated bilateral partially occlusive deep venous thrombosis, slightly improved within the right lower extremity and slightly progressed within the CTA negative for PE after getting morphine in the ED patient's pain is much better is 5 out of 10 Assessment and plan chest pain /hypertension -given the H&P ,it is possible that patient is medication seeking -however we will do serial troponins and EKGs -cardiology consult in the morning -patient is allergix to aspitin so we will give him plavix -Continue metoprolol and statin, lisinopril DVT d dimer less than 200, it can be old DVT or failure on warfarin -patient reports he is complaint with the medication -we put the patient on IV heparin & bridge with coumadin -Tramadol and IV morphine for pain History of depression/anxiety/bipolar/insomnia -Continue venlafaxine, clonazepam, benztropine, Depakote, Invega, Seroquel, zolpidem History of GERD, -Continue omeprazole DVT prophylaxis he is only IV heparin, full code, heart healthy diet KESHIA REYES 08/08/16 0355: Attending MD Review Statement Attending Statement Attending MD Statement: examined this patient, discuss w/resident/PA/REGISTERED PUBLIC SURVEYOR, agreed w/resident/PA/REGISTERED PUBLIC SURVEYOR, reviewed EMR data (avail), reviewed images, amended to note Attending Assessment/Plan: CC: Chest pain, leg pain PMHx: CAD (2 NE) s/p ? CABG Vs Stent (patient not clear), mitral wall repair (in 2000) , history of endocarditis, ?aortic valve surgery (in 2004) (2 D echo in 2013 : no mention) 2 large surgical scars on chest (midline and on right side), HLD, bipolar disorder, CVA, recurrent DVT, s/p IVC filter currently on warfarin. ?Antiphospholipid syndrome Patient came to ER for chest pain, sharp, left-sided, radiating to left arm, 40 minutes before arrival. No aggravating or relieving factors. Pain completely relieved after a dose of morphine in ER. Patient also started to notice leg swellings bilaterally yesterday, he was worried about DVT. Vitals: afebrile, HR, RR, blood pressure, O2 saturation within acceptable range, on room air. On exam : A O 3, anxious, no acute distress, no JVD, peripheral pulses and perfusion normal. No focal neurological deficit, no significant leg swellings. CVS: Systolic murmur in the mitral area 2/6. RS: Clear air entry bilaterally present. Abdomen: Soft, NT, ND, bowel sounds present. Labs: CBC, BMP, LFT, troponin in normal range. Except Creatinine increased to 1.3 (baseline 1.1), and elevated total protein of 10.1 with increased albumin, INR 1.8, d-dimer less than 200 ECG : No acute changes Venous Doppler bilateral lower extremity: Redemonstrated bilateral partially occlusive deep venous thrombosis, slightly improved within the right lower extremity and slightly progressed within the left lower extremity. Chest x-ray: No acute abnormality CTA chest : No evidence of pulmonary embolism. No acute change of the chest A and P #1 Chest pain : Patient had chest pain at rest, transient, radiating to left hand, resolved with morphine. Given his extensive past medical history including CAD, admit on telemetry, trend troponins, serial EKG, nitroglycerin if required. Consult cardiology in a.m. Pulmonary embolism as a cause of chest pain is ruled out. Continue aspirin, continue statin, continue beta rachel #2 DVT: Patient had previous history of DVT, its extending in the left lower extremity even on warfarin. Patient says he has been compliant with his warfarin and checks INR very frequently his previous INR was 2.7 (? 1 week back ). This today's INR is subtherapeutic at 1.8. Patient was admitted previously with similar complaints, was on Xeralto at that time. It was changed to Lovenox for 30 days on discharge and patient was suggested to follow-up with his locomotive crane operator helper at [place]. Eventually patient's PCP suggested that he should be on warfarin thus he is on warfarin since previous discharge. Worrisome about failure of oral anticoagulation, history of antiphospholipid syndrome is unclear. Patient was started on heparin in ER, continue heparin for now. We need to discuss with hematology about further treatment course for recurrent DVTs, consult hematology in a.m.. #3 renal insufficiency : Probably secondary to volume contraction, continue gentle hydration #4 elevated total protein : Compared to previous, again can be secondary to volume contraction continue gentle hydration #5 continue rest of his home medications for chronic stable conditions. #6 adequate pain control with pain pathway.
--- NOTE | 2016-08-07 22:50 | NUR ---
PT ADMITTED TO ROOM # 180-2 ORAL REPORT GIVEN TO FAINA WETZEL PT READY FOR TRANSFER
[2016-08-08 00:35] VITALS: BP 130/90
--- NOTE | 2016-08-08 03:59 | Admission Certification ---
Admission Certification Certification Statement - As attending physician, I certify that at the time of - admission, based on clinical presentation, severity of - symptoms, need for further diagnostic testing and - therapeutic interventions, and risk of adverse outcomes - without in-hospital treatment, in my clinical assessment, - this patient requires an acute hospital stay for a minimum - of two nights or longer. I have also considered psychsocial - factors such as support system, advanced age, financial - issues, cognitive issues, and failed out-patient treatments, - past re-admission history, safety of patient, and lack of - compliance as applicable. Specific rationale supporting this admission is: Chest pain , rule out ACS. Extension of previous DVT, suspected failure of warfarin therapy
[2016-08-08 04:39] LABS: PTT > 120 SEC (25-37)
[2016-08-08 08:00] VITALS: BP 134/92
--- NOTE | 2016-08-08 08:11 | PN- Housestaff ---
IRENE QUILES,[facility] 08/08/16 0810: Subjective Follow-up For: DVT History of CVA Tele-Events Since Last Visit: Sinus rhythm 63-77 No events Subjective: Patient was seen and examined this morning. He is resting comfortably in bed. Patient states that he continues to experience left cough pain. Pain is rated at a 9 out of 10 in severity. Described as a pressure pain. Patient states the pain remains the same during ambulation. Patient states that he would like to go home for the holiday to spend time with his and son. Patient denies any dyspnea. The patient denies any fever, chills, nausea, vomiting. Review of Systems Constitutional: Reports: see HPI. Denies: chills, diaphoresis, malaise. Objective Last 24 Hrs of Vital Signs/I&O Vital Signs Date Time Temp Pulse Resp B/P Pulse O2 O2 Flow FiO2 Ox Delivery Rate 08/08 1642 98.5 58 16 134/84 96 Room Air 08/08 1026 68 134/92 08/08 1026 68 134/92 08/08 0800 97.7 68 18 134/92 99 Room Air 08/08 0130 54 130/90 08/08 0035 98.2 62 20 130/90 98 Room Air 08/07 2302 98.6 72 20 139/86 95 Room Air 08/07 2104 66 16 158/92 98 Room Air Intake & Output 08/08 1600 08/08 0800 08/08 0000 Intake Total 1119.6 876 0 Output Total 650 100 Balance 469.6 776 0 Intake, IV 159.6 156 0 Intake, Oral 960 720 Number 0 Bowel Movements Output, Urine 650 100 Patient 79.379 kg Weight Physical Exam General Appearance: Alert, Oriented X3, Cooperative, No Acute Distress Lymphatic: Cervical nl Cardiovascular: Regular Rate, Normal S1, Normal S2 Lungs: Clear to Auscultation Abdomen: Normal Bowel Sounds, Soft, No Tenderness Neurological: Normal Speech, Strength at 5/5 X4 Ext Extremities: No Edema Current Medications: Current Medications Sig/Aly Start time Last Medication Dose Route Stop Time Status Admin Atorvastatin Calcium 40 MG DAILY 08/08 1000 AC 08/08 PO 1025 Benztropine Mesylate 2 MG BID 08/08 1000 DC PO Benztropine Mesylate 2 MG BID 08/08 1000 AC 08/08 PO 1025 Benztropine Mesylate 2 MG BID 08/08 0030 DC PO Benztropine Mesylate 2 MG BID 08/07 2344 DC PO Clonazepam 1 MG .STK-MED ONE 08/08 1020 DC PO 08/08 1021 Clonazepam 1 MG BID 08/07 2345 AC 08/08 PO 08/14 2344 1026 Clopidogrel Bisulfate 75 MG ONCE ONE 08/08 0230 DC 08/08 PO 08/08 0231 0258 Cyclobenzaprine HCl 5 MG TIDPRN PRN 08/07 2345 AC 08/08 PO 1027 Divalproex Sodium 500 MG BID 08/07 2346 AC 08/08 PO 1024 Folic Acid 1 MG DAILY 08/08 1000 AC 08/08 PO 1025 Heparin Sodium 0 .STK-MED ONE 08/07 2105 DC (Porcine) .ROUTE Heparin Sodium 5,000 UNIT ONCE ONE 08/07 2045 DC 08/07 (Porcine) IV 08/07 2046 2120 Heparin Sodium 25,000 UNIT Q24H 08/07 2045 AC 08/07 (Porcine) IV 2121 Sodium Chloride 500 ML Lisinopril 5 MG DAILY 08/08 1000 AC 08/08 PO 1026 Metoprolol Tartrate 25 MG BID 08/07 2347 AC 08/08 PO 1026 Morphine Sulfate 10 MG .STK-MED ONE 08/08 0001 DC IM 08/08 0002 Morphine Sulfate 2 MG Q4-6 PRN PRN 08/07 2345 AC 08/08 IV 1859 Multivitamins 1 TAB DAILY 08/08 1000 AC 08/08 PO 1026 Omeprazole 40 MG DAILY AC 08/08 0700 AC 08/08 PO 0633 Oxybutynin Chloride 10 MG QPM 08/08 2200 AC PO Paliperidone 6 MG AT BEDTIME 08/07 2345 AC 08/08 PO 0129 Quetiapine Fumarate 100 MG AT BEDTIME 08/08 0030 AC 08/08 PO 0128 Sodium Chloride 1,000 ML Q10H 08/07 2345 DC IV 08/08 0944 Tramadol HCl 50 MG BID 08/07 2345 AC 08/08 PO 1024 Venlafaxine HCl 75 MG DAILY 08/08 1000 AC 08/08 PO 1025 Zolpidem Tartrate 10 MG QPM 08/08 2200 DC PO Zolpidem Tartrate 10 MG QPM 08/08 0130 AC 08/08 PO 0129 Zolpidem Tartrate 5 MG .STK-MED ONE 08/08 0125 DC PO 08/08 0126 Zolpidem Tartrate 5 MG .STK-MED ONE 08/08 0110 DC PO 08/08 0111 Last 24 Hrs of Lab/Vini Results Last 24 Hrs of Labs/Mics: Laboratory Tests 08/08/16 1130: APTT Cancelled 08/08/16 1130: Anion Gap 11, Estimated GFR > 60, BUN/Creatinine Ratio 13.0, Troponin I < 0.01, PT 23.0 H, INR 2.21 H, APTT > 120 *H, CBC w Diff NO MAN DIFF REQ, RBC 4.34 L, MCV 87.8, MCH 29.0, RDW 14.7 H, MPV 13.1 H, Gran % 40.0 L, Lymphocytes % 44.6 , Monocytes % 12.9 H, Eosinophils % 2.1, Basophils % 0.4, Absolute Granulocytes 1.5, Absolute Lymphocytes 1.7, Absolute Monocytes 0.5, Absolute Eosinophils 0.1, Absolute Basophils 0, PUBS MCHC 33.1 08/08/16 0400: APTT > 120 *H 08/08/16 0055: Troponin I < 0.01 08/07/165: D-Dimer < 200 Assessment/Plan Assessment: Mr. Andrade is a 41-year-old gentleman with past medical history of multiple VTE, IVC filter coronary artery disease and stroke who was admitted for development of a DVT. Despite patient stating that he has been on warfarin and reporting good medical compliance patient continues to be developing thrombi. It's unclear as to the long-term best strategy for this patient considering he has been on Lovenox as well as warfarin. #DVT Since admission the patient has been on IV Heparin drip. As per recommendations from kitchen worker, on 08/09/2016 we will dose Enoxaparin 1 mg/kg twice a day. This has been scheduled for 11 AM. The IV heparin drip can then be discontinued. If patient prefers to be on warfarin instead of Lovenox this will need to be addressed with him in the morning. Patient may prefer this to option to warfarin considering questionable subtherapeutic or outpatient failure. Patient is on coumadin therapy, he is following, Coumadin clinic every weekly. Last INR 2.7. Despite, Coumadinslightly DVT is slightly progressed within the LLE. PT/INR-19.1/1.83 We will continue IV heparin drip and regularly monitor, APTT #Depression/anxiety/bipolar/insomnia - Continue all home medication including venlafaxine/benztropine/clonazepam/ Depakote/Seroquel/zolpidem. #Prerenal FLO BUN BUN has normalized and is now 13 creatinine 1.0. BEP in a.m. #Hypertension We will continue metoprolol and lisinopril #Hyperlipidemia Continue high-dose statin #GERD We'll continue omeprazole #Diet - heart healthy diet #DVT prophylaxis- ALPS/heparin #CODE STATUS-full code Problem List: 1. Anxiety disorder 2. Benign essential hypertension 3. Bipolar disorder 4. CVA 5. Chest discomfort 6. Cocaine abuse 7. Myocardial infarction 8. Osteoarthritis 9. hx of DVT 10. hx of hepatitis C 11. infective endocarditis 12. s/p IVC filter placement 13. Chest pain 14. Abdominal pain 15. Chest wall pain 16. Chest pain syndrome 17. DVT, bilateral lower limbs 18. Anti-phospholipid antibody syndrome 19. Atypical chest pain 20. Rectal bleeding 21. DVT (deep venous thrombosis) Pain Ratin Pain Location: Left Calf Pain Goal: Remain pain free Pain Plan: Tramadol Tomorrow's Labs & Rationales: BEP: Monitor electrolytes MARCUS QUILES,ANGEL 08/08/16 1053: Attending MD Review Statement Attending Statement Attending MD Statement: examined this patient, discuss w/resident/PA/MOVIE MACHINE OPERATOR, agreed w/resident/PA/MOVIE MACHINE OPERATOR, reviewed EMR data (avail), discussed with nursing, discussed with case mgmt, amended to note Attending Assessment/Plan: Patient seen and examined. Resting comfortably in bed not in acute distress. Denies any further chest pain. Denies shortness of breath or palpitations. No events overnight. His anticoagulation history is not quite clear. Patient claims that he filled therapy with Xarelto was changed to Coumadin by his kitchen worker Dr. Felix Ennis. Patient's last admission to [facility] was back in November. He presented at that time with recurrent DVT. At that time claim history revealed that he had prescriptions for both Xarelto and Coumadin. His INR was subtherapeutic at the time. After hematology follow-up here at [facility] he was discharged home on Lovenox. According to patient he follows up with kitchen worker Dr. Felix Ennis at [facility] and he was please back on Coumadin. He is currently on Coumadin however his INR is slightly subtherapeutic. He complained of lower extremity pain on admission and Dopplers were obtained. Injury demonstrated bilateral partial the occlusive DVT slightly improved on the right has slightly progressed on the left. The acuity of the progression is unknown. He currently denies any lower extremity symptoms. He is hemodynamically stable. He has 2 sets of negative troponins. Problems: 1. Chest pain; now resolved 2. Bilateral lower extremity DVT secondary to antiphospholipid syndrome. 3. FLO Plan: -Follow-up with the cardiology service with regards to need for further ischemic workup. -Please contact the hematology service regarding anticoagulation therapy. Recommend contacting patient's kitchen worker Dr. Felix Ennis to clarify his anticoagulation regimen prior to discharge. -Continue and cognition with IV heparin for now. -Hydrate with IV fluids at 100 mL an hour for 1 L. Repeat serum chemistry tomorrow. -Check stool guaiac.
[2016-08-08 12:52] LABS: ABSOLUTE BASOPHIL COUNT 0 /CUMM (0.0-0.2); ABSOLUTE EOSINOPHIL COUNT 0.1 /CUMM (0.0-0.7); ABSOLUTE GRANULOCYTE CT 1.5 /CUMM (1.4-6.5); ABSOLUTE LYMPH COUNT 1.7 /CUMM (1.2-3.4); ABSOLUTE MONOCYTE COUNT 0.5 /CUMM (0.10-0.60); BASOPHIL % 0.4 % (0.0-2.0); EOSINOPHIL % 2.1 % (0-5); HEMATOCRIT 38.1 % (42-52); MEAN CORPUSCULAR HGB CONC 33.1 G/DL (33.0-37.0); MEAN CORPUSCULAR VOLUME 87.8 FL (80.0-94.0); MEAN PLATELET VOLUME 13.1 FL (7.4-10.4); RBC DISTRIBUTION WIDTH 14.7 % (11.5-14.5); RED BLOOD CELL CT 4.34 /CUMM (4.70-6.10); WHITE BLOOD CELL COUNT 3.7 /CUMM (4.8-10.8)
[2016-08-08 13:39] LABS: PTT > 120 SEC (25-37)
[2016-08-08 13:44] LABS: PLATELET COUNT 91 /CUMM (130-400)
--- NOTE | 2016-08-08 13:58 | Cons- Hematology ---
General Information and HPI Consulting Request Date of Consult: 08/08/16 Requested By: KESHIA REYES MD Reason for Consult: PE/DVT/APLS Source of Information: patient, old records Exam Limitations: poor historian, language barrier History of Present Illness: Mr. Andrade is a 41-year-old male with history of multiple VTE, stroke, and CAD who presents to [facility] with left-sided chest pain and lower extremity pain. He has been having pain for the past 1 day. He has similar presentation almost weekly. He has been to the [facility] weekly since at least May 2016 for similar symptoms. He was last seen by Dr. Felix Ennis in November 2015. His anticoagulation was switched at that time to Xarelto. Per the patient, he failed that and was placed back on warfarin. He has been taking it 5 mg warfarin every day for years now. His INR has been noted to be mostly subtherapeutic recently. Mr. Andrade states he is taking it as directed. Because of the sudden chest pain and leg pain, he came to [facility]. On admission, he was evaluated with chest CTA and lower extremity US. Chest CTA demonstrated no evidence of PE. The lower extremity doppler US redemonstrated bilateral partially occlusive deep venous thrombosis, slightly improved within the right lower extremity and slightly progressed within the left lower extremity when compared to November 2015. He feels a little better now and wants to go home. He is now on heparin drip. He has no fever or chills. He is taking his medication as directed. Allergies/Medications Allergies: Coded Allergies: hydrocodone (PER PT FEELS DIZZY 06/03/16) ketorolac (From TORADOL) (PER PT "FEEL PAIN AND SHAKEY" 06/03/16) nitroglycerin (From NITRO-BID) (PER PT "MY BODY FEELS FUNNY AND MY HEAD GONNA EXPLODE UP" 06/03/16) Home Med List: Atorvastatin Calcium (Lipitor) 40 MG TAB 1 TAB PO DAILY CHOLESTEROL (Reported ) Benztropine Mesylate 2 MG TABLET 1 TAB PO BID MENTAL HEALTH (Reported) Clonazepam 1 MG TABLET 1 TAB PO BID ANXIETY (Reported) CYCLOBENZAPRINE HCL (Cyclobenzaprine Hydrochloride) 5 MG TAB 1 TAB PO TID PRN MUSCLE SPASMS (Reported) Divalproex Sodium (Divalproex Sodium ER) [address] 1 TAB PO BID MENTAL HEALTH (Reported) Esomeprazole (Nexium) 40 MG CAP 1 PAC PO DAILY GI (Reported) Folic Acid 1 MG TABLET 1 TAB PO DAILY SUPPLEMENT (Reported) LACTOSE-REDUCED FOOD (Ensure Plus 237 Ml) 237 ML LIQ 237 ML PO DAILY SUPPLEMENT (Reported) Lisinopril (Prinivil) 5 MG TAB 1 TAB PO DAILY BP (Reported) Metoprolol Tartrate 25 MG TABLET 1 TAB PO BID HEART (Reported) Mv,Min #10/FA/D3/Alip Acid/Lut (Strovite One Caplet) 1 MG-1,000 UNIT-15 MG-5 MG TABLET 1 TAB PO DAILY SUPPLEMENT (Reported) Paliperidone (Invega) 6 MG TAB.ER.24 1 TAB PO QPM MENTAL HEALTH (Reported) Quetiapine Fumarate (Seroquel) 100 MG TAB 1 TAB PO QHS SLEEP (Reported) Solifenacin Succinate (Vesicare) 10 MG TAB 1 TAB PO QHS BLADDER (Reported) Tramadol HCl (Tramadol HCl ER) 100 MG TAB.ER.24H 1 TAB PO DAILY PAIN ( Reported) VENLAFAXINE HCL (Venlafaxine HCl ER) 75 MG CER 1 CAP PO DAILY MENTAL HEALTH ( Reported) Warfarin Sodium 5 MG TABLET 1 TAB PO 1700 BLOOD THINNER (Reported) Zolpidem Tartrate (Ambien 10MG) 10 MG TAB 1 TAB PO QPM SLEEP (Reported) Current Medications: Current Medications Sig/Aly Start time Last Medication Dose Route Stop Time Status Admin Atorvastatin Calcium 40 MG DAILY 08/08 1000 AC 08/08 PO 1025 Benztropine Mesylate 2 MG BID 08/08 1000 DC PO Benztropine Mesylate 2 MG BID 08/08 1000 AC 08/08 PO 1025 Benztropine Mesylate 2 MG BID 08/08 0030 DC PO Benztropine Mesylate 2 MG BID 08/07 2344 DC PO Clonazepam 1 MG BID 08/07 2345 AC 08/08 PO 08/14 2344 1026 Clopidogrel Bisulfate 75 MG ONCE ONE 08/08 0230 DC 08/08 PO 08/08 0231 0258 Cyclobenzaprine HCl 5 MG TIDPRN PRN 08/07 2345 AC 08/08 PO 1027 Divalproex Sodium 500 MG BID 08/07 2346 AC 08/08 PO 1024 Folic Acid 1 MG DAILY 08/08 1000 AC 08/08 PO 1025 Heparin Sodium 0 .STK-MED ONE 08/07 2105 DC (Porcine) .ROUTE Heparin Sodium 5,000 UNIT ONCE ONE 08/07 2045 DC 08/07 (Porcine) IV 08/07 2046 2120 Heparin Sodium 25,000 UNIT Q24H 08/07 2045 AC 08/07 (Porcine) IV 2121 Sodium Chloride 500 ML Lisinopril 5 MG DAILY 08/08 1000 AC 08/08 PO 1026 Metoprolol Tartrate 25 MG BID 08/07 2347 AC 08/08 PO 1026 Morphine Sulfate 10 MG .STK-MED ONE 08/08 0001 DC IM 08/08 0002 Morphine Sulfate 2 MG Q4-6 PRN PRN 08/07 2345 AC 08/08 IV 1229 Morphine Sulfate 2 MG ONCE ONE 08/07 1845 DC 08/07 IM 08/07 1846 1901 Morphine Sulfate 0 .STK-MED ONE 08/07 1833 DC .ROUTE Morphine Sulfate 2 MG ONCE ONE 08/07 1700 CAN IV 08/07 1701 Multivitamins 1 TAB DAILY 08/08 1000 AC 08/08 PO 1026 Omeprazole 40 MG DAILY AC 08/08 0700 AC 08/08 PO 0633 Oxybutynin Chloride 10 MG QPM 08/08 2200 AC PO Paliperidone 6 MG AT BEDTIME 08/07 2345 AC 08/08 PO 0129 Quetiapine Fumarate 100 MG AT BEDTIME 08/08 0030 AC 08/08 PO 0128 Sodium Chloride 1,000 ML Q10H 08/07 2345 DC IV 08/08 0944 Tramadol HCl 50 MG BID 08/07 2345 AC 08/08 PO 1024 Venlafaxine HCl 75 MG DAILY 08/08 1000 AC 08/08 PO 1025 Zolpidem Tartrate 10 MG QPM 08/08 2200 DC PO Zolpidem Tartrate 10 MG QPM 08/08 0130 AC 08/08 PO 0129 Zolpidem Tartrate 5 MG .STK-MED ONE 08/08 0125 DC PO 08/08 0126 Zolpidem Tartrate 5 MG .STK-MED ONE 08/08 0110 DC PO 08/08 0111 Review of Systems Review of Systems Constitutional: Denies: chills, fever. EENTM: Denies: blurred vision, double vision. Cardiovascular: Reports: chest pain. Respiratory: Reports: short of breath. GI: Denies: diarrhea, melena, bloody stool. Genitourinary: Denies: hematuria. Musculoskeletal: Denies: back pain. Skin: Denies: erythema, rash. Neurological/Psychological: Denies: anxiety, ataxia. Hematologic/Endocrine: Denies: bruising, bleeding. Immunologic/Allergic: Denies: lymphadenopathy. 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 FATHER (Cardiac disease). FATHER (Stroke/CVA). Psychosocial History Where Do You Live? Home Who Do You Live With? spouse Services at Home: None Smoking Status: Former Smoker Illicit Drug Use: denies illicit drug use Functional Ability ADLs Independent: dressing, eating, toileting, bathing. Ambulation: independent IADLs Independent: shopping, housework, finances, food prep, telephone, transportation , medication admin. Exam & Diagnostic Data Vital Signs and I&O Vital Signs Date Time Temp Pulse Resp B/P Pulse O2 O2 Flow FiO2 Ox Delivery Rate 08/08 1026 68 134/92 08/08 1026 68 134/92 08/08 0800 97.7 68 18 134/92 99 Room Air 08/08 0130 54 130/90 08/08 0035 98.2 62 20 130/90 98 Room Air 08/07 2302 98.6 72 20 139/86 95 Room Air 08/07 2104 66 16 158/92 98 Room Air 08/07 1902 98 Room Air 08/07 1818 96.1 53 16 125/73 100 Room Air 08/07 1623 96.2 62 20 154/88 99 Room Air Intake & Output 08/08 1600 08/08 0800 08/08 0000 Intake Total 876 0 Output Total 100 Balance 776 0 Intake, IV 156 0 Intake, Oral 720 Number 0 Bowel Movements Output, Urine 100 Patient 79.379 kg Weight Physical Exam General Appearance: alert, awake, comfortable Head: atraumatic, normal appearance Eyes: Bilateral: PERRL. Ears, Nose, Throat: normal pharynx Respiratory: normal breath sounds, chest non-tender, no respiratory distress Cardiovascular: regular rate/rhythm Gastrointestinal: normal bowel sounds, soft, non-tender, no organomegaly Extremities: no edema, calf tenderness Neurologic/Psych: alert, oriented x 3 Skin: warm/dry Last 48 Hours of Lab Results: Laboratory Tests 08/08 08/08 08/08 08/08 08/07 1130 1130 0400 0055 5 Chemistry Sodium (137 - 145 mmol/L) 143 Potassium (3.5 - 5.1 mmol/L) 3.8 Chloride (98 - 107 mmol/L) 99 Carbon Dioxide (22 - 30 mmol/L) 33 H Anion Gap (5 - 16) 11 BUN (9 - 20 mg/dL) 13 Creatinine (0.7 - 1.2 mg/dL) 1.0 Estimated GFR (>60 ml/min) > 60 BUN/Creatinine Ratio (7 - 25 %) 13.0 Troponin I (<0.11 ng/ml) < 0.01 < 0.01 Coagulation PT (9.4 - 12.5 SEC) 23.0 H INR (0.90 - 1.17) 2.21 H APTT (25 - 37 SEC) Cancelled > 120 *H > 120 *H D-Dimer (70 - 232 ng/ml) < 200 Hematology CBC w Diff Pending WBC Pending RBC Pending Hgb Pending Hct Pending MCV Pending MCH Pending RDW Pending Plt Count Pending MPV Pending PUBS MCHC Pending 08/07 08/07 1812 1706 Chemistry Sodium (137 - 145 mmol/L) 143 Potassium (3.5 - 5.1 mmol/L) 4.6 Chloride (98 - 107 mmol/L) 97 L Carbon Dioxide (22 - 30 mmol/L) 30 Anion Gap (5 - 16) 16 BUN (9 - 20 mg/dL) 21 H Creatinine (0.7 - 1.2 mg/dL) 1.3 H Estimated GFR (>60 ml/min) > 60 BUN/Creatinine Ratio (7 - 25 %) 16.2 Glucose (65 - 99 mg/dL) 77 Calcium (8.4 - 10.2 mg/dL) 10.2 Total Bilirubin (0.2 - 1.3 mg/dL) 0.8 AST (17 - 59 U/L) 54 ALT (21 - 72 U/L) 46 Alkaline Phosphatase (< 127 U/L) 53 Troponin I (<0.11 ng/ml) < 0.01 Total Protein (6.3 - 8.2 g/dL) 10.1 H Albumin (3.5 - 5.0 g/dL) 5.5 H Globulin (1.9 - 4.2 gm/dL) 4.6 H Albumin/Globulin Ratio (1.1 - 2.2 %) 1.2 Coagulation PT (9.4 - 12.5 SEC) 19.1 H INR (0.90 - 1.17) 1.83 H APTT (25 - 37 SEC) 27 Hematology CBC w Diff NO MAN DIFF REQ WBC (4.8 - 10.8 /CUMM) 6.2 RBC (4.70 - 6.10 /CUMM) 4.67 L Hgb (14.0 - 18.0 G/DL) 13.6 L Hct (42 - 52 %) 41.2 L MCV (80.0 - 94.0 FL) 88.3 MCH (27.0 - 31.0 PG) 29.1 RDW (11.5 - 14.5 %) 15.0 H Plt Count (130 - 400 /CUMM) Gran % (42.2 - 75.2 %) 62.6 Lymphocytes % (20.5 - 51.1 %) 29.2 Monocytes % (1.7 - 9.3 %) 6.7 Eosinophils % (0 - 5 %) 1.2 Basophils % (0.0 - 2.0 %) 0.3 Absolute Granulocytes (1.4 - 6.5 /CUMM) 3.9 Absolute Lymphocytes (1.2 - 3.4 /CUMM) 1.8 Absolute Monocytes (0.10 - 0.60 /CUMM) 0.4 Absolute Eosinophils (0.0 - 0.7 /CUMM) 0.1 Absolute Basophils (0.0 - 0.2 /CUMM) 0 PUBS MCHC (33.0 - 37.0 G/DL) 33.0 Toxicology Urine Opiates Screen (>2000 NG/ML) < 100.00 Methadone Screen (>300 NG/ML) < 40 Barbiturate Screen (>200 NG/ML) < 60 Ur Phencyclidine Scrn (>25 NG/ML) < 6.00 Amphetamines Screen (>1000 NG/ML) < 100 U Benzodiazepines Scrn (>200 NG/ML) < 85 Urine Cocaine Screen (>300 NG/ML) < 50 Urine Cannabis Screen (>50 NG/ML) < 5.00 Imaging/Other Studies: 08/07/2016 Venous Doppler US: Redemonstrated bilateral partially occlusive deep venous thrombosis, slightly improved within the right lower extremity and slightly progressed within the left lower extremity as discussed above. 08/07/2016 Chest CTA: No evidence of pulmonary embolism. No acute change of the chest. Assessment/Plan Assessment: Mr. Andrade is a 41-year-old with history of multiple VTE, IVC filter in 2004, CAD, and stroke who was admitted for chest pain and lower extremity pain. Chest CTA is negative for PE. Lower extremity doppler US demonstrated bilateral partially occlusive deep venous thrombosis, slightly improved within the right lower extremity and slightly progressed within the left lower extremity. The chronicity of the thrombosis is unclear. He has been on warfarin as per the last notes by [facility]. Per the patient, he is on warfarin 5 mg daily and reportedly compliant. Review of his outpatient laboratory results indicates he has been subtherapeutic over the last month or so. Given these finding, options include placing him back on warfarin or enoxaparin. He can be placed on enoxaparin until he follows up with Dr. Ennis on 08/18/16 to discuss options. Otherwise, he can be transitioned to warfarin and followed closely to ensure therapeutic level. Recommendations: 1. Enoxaparin 1 mg/kg BID or transition to warfarin 2. Follow up with Dr. Felix Ennis on 08/18/2016 at 1:30PM Problem List: 1. DVT (deep venous thrombosis) 2. Anti-phospholipid antibody syndrome Other Findings/Comments: Please call [phone] Consult Acknowledgment - Thank you for your consult request.
[2016-08-08 16:42] VITALS: BP 134/84
--- NOTE | 2016-08-08 20:21 | Cons- Cardiology ---
General Information and HPI Consulting Request Date of Consult: 08/08/16 Requested By: KESHIA REYES MD Reason for Consult: Chest pain History of Present Illness: The patient is a 41-year-old male with history of CAD, CVA, multiple VTE who presented with left-sided chest pain and lower extremity pain. The pain has been present for approximately 24 hours. He has had similar symptoms frequently , for which he has multiple presentations to [facility]. He failed anticoagulation was Xarelto and was placed back on warfarin. He has been taking 5 milligrams of warfarin every day and his INR has been mostly subtherapeutic. No palpitations. No diaphoresis. No nausea or vomiting. No lightheadedness or dizziness. No syncope. Allergies/Medications Allergies: Coded Allergies: hydrocodone (PER PT FEELS DIZZY 06/03/16) ketorolac (From TORADOL) (PER PT "FEEL PAIN AND SHAKEY" 06/03/16) nitroglycerin (From NITRO-BID) (PER PT "MY BODY FEELS FUNNY AND MY HEAD GONNA EXPLODE UP" 06/03/16) Home Med List: Atorvastatin Calcium (Lipitor) 40 MG TAB 1 TAB PO DAILY CHOLESTEROL (Reported ) Benztropine Mesylate 2 MG TABLET 1 TAB PO BID MENTAL HEALTH (Reported) Clonazepam 1 MG TABLET 1 TAB PO BID ANXIETY (Reported) CYCLOBENZAPRINE HCL (Cyclobenzaprine Hydrochloride) 5 MG TAB 1 TAB PO TID PRN MUSCLE SPASMS (Reported) Divalproex Sodium (Divalproex Sodium ER) [address] 1 TAB PO BID MENTAL HEALTH (Reported) Enoxaparin Sodium (Lovenox) 80 MG/0.8 ML SYRINGE 80 MG SC BID dvt Esomeprazole (Nexium) 40 MG CAP 1 PAC PO DAILY GI (Reported) Folic Acid 1 MG TABLET 1 TAB PO DAILY SUPPLEMENT (Reported) LACTOSE-REDUCED FOOD (Ensure Plus 237 Ml) 237 ML LIQ 237 ML PO DAILY SUPPLEMENT (Reported) Lisinopril (Prinivil) 5 MG TAB 1 TAB PO DAILY BP (Reported) Metoprolol Tartrate 25 MG TABLET 1 TAB PO BID HEART (Reported) Mv,Min #10/FA/D3/Alip Acid/Lut (Strovite One Caplet) 1 MG-1,000 UNIT-15 MG-5 MG TABLET 1 TAB PO DAILY SUPPLEMENT (Reported) Paliperidone (Invega) 6 MG TAB.ER.24 1 TAB PO QPM MENTAL HEALTH (Reported) Quetiapine Fumarate (Seroquel) 100 MG TAB 1 TAB PO QHS SLEEP (Reported) Solifenacin Succinate (Vesicare) 10 MG TAB 1 TAB PO QHS BLADDER (Reported) Tramadol HCl (Tramadol HCl ER) 100 MG TAB.ER.24H 1 TAB PO DAILY PAIN ( Reported) VENLAFAXINE HCL (Venlafaxine HCl ER) 75 MG CER 1 CAP PO DAILY MENTAL HEALTH ( Reported) Zolpidem Tartrate (Ambien 10MG) 10 MG TAB 1 TAB PO QPM SLEEP (Reported) Current Medications: Current Medications Sig/Aly Start time Last Medication Dose Route Stop Time Status Admin Atorvastatin Calcium 40 MG DAILY 08/08 1000 AC 08/08 PO 1025 Benztropine Mesylate 2 MG BID 08/08 1000 DC PO Benztropine Mesylate 2 MG BID 08/08 1000 AC 08/08 PO 2148 Benztropine Mesylate 2 MG BID 08/08 0030 DC PO Benztropine Mesylate 2 MG BID 08/07 2344 DC PO Clonazepam 1 MG .STK-MED ONE 08/08 1020 DC PO 08/08 1021 Clonazepam 1 MG BID 08/07 2345 AC 08/08 PO 08/14 2344 2149 Clopidogrel Bisulfate 75 MG ONCE ONE 08/08 0230 DC 08/08 PO 08/08 0231 0258 Cyclobenzaprine HCl 5 MG TIDPRN PRN 08/07 2345 AC 08/08 PO 1027 Divalproex Sodium 500 MG BID 08/07 2346 AC 08/08 PO 2148 Enoxaparin Sodium 80 MG BID 08/09 1100 AC SC Folic Acid 1 MG DAILY 08/08 1000 AC 08/08 PO 1025 Heparin Sodium 25,000 UNIT Q24H 08/07 2045 AC 08/08 (Porcine) IV 2150 Sodium Chloride 500 ML Lisinopril 5 MG DAILY 08/08 1000 AC 08/08 PO 1026 Metoprolol Tartrate 25 MG BID 08/07 2347 AC 08/08 PO 2149 Morphine Sulfate 10 MG .STK-MED ONE 08/08 0001 DC IM 08/08 0002 Morphine Sulfate 2 MG Q4-6 PRN PRN 08/07 2345 AC 08/08 IV 1859 Multivitamins 1 TAB DAILY 08/08 1000 AC 08/08 PO 1026 Omeprazole 40 MG DAILY AC 08/08 0700 AC 08/08 PO 0633 Oxybutynin Chloride 10 MG QPM 08/08 2200 AC 08/08 PO 2148 Paliperidone 6 MG AT BEDTIME 08/07 2345 AC 08/08 PO 2149 Quetiapine Fumarate 100 MG AT BEDTIME 08/08 0030 AC 08/08 PO 214 Sodium Chloride 1,000 ML Q10H 08/07 2345 DC IV 08/08 0944 Tramadol HCl 50 MG BID 08/07 2345 AC 08/08 PO 214 Venlafaxine HCl 75 MG DAILY 08/08 1000 AC 08/08 PO 1025 Zolpidem Tartrate 10 MG QPM 08/08 2200 DC PO Zolpidem Tartrate 10 MG QPM 08/08 0130 AC 08/08 PO 2149 Zolpidem Tartrate 5 MG .STK-MED ONE 08/08 0125 DC PO 08/08 0126 Zolpidem Tartrate 5 MG .STK-MED ONE 08/08 0110 DC PO 08/08 0111 Review of Systems Review of Systems: No rash. No tremor. No hemoptysis. No hematemesis. All other systems are reviewed and are noted to be negative. Past History Travel History Traveled to [place] past 21 day No Medical History Neurological: CVA EENT: NONE Cardiovascular: CAD, hypertension, myocardial infarction, MITRAL VALVE REPAIR CABG AORTIC VALVE REPAIR INFECTIVE ENDOCARDITIS Hyperlipidemia DVT Respiratory: NONE Gastrointestinal: RECTAL BLEEDING IN PAST Hepatic: NONE Renal: NONE Musculoskeletal: NONE Psychiatric: anxiety, bipolar disease, IV drug abuse Endocrine: NONE Blood Disorders: DVT, APLS Cancer(s): NONE BRAND STRATEGIST/Reproductive: NONE Surgical History Surgical History: CABG IN 2004 mitral valve repair IVC filter placement Family History Relations & Conditions If Any: BROTHER (PE). FATHER (Cardiac disease). FATHER (Stroke/CVA). Psychosocial History Where Do You Live? Home Who Do You Live With? spouse Services at Home: None Smoking Status: Former Smoker Illicit Drug Use: denies illicit drug use Functional Ability ADLs Independent: dressing, eating, toileting, bathing. Ambulation: independent IADLs Independent: shopping, housework, finances, food prep, telephone, transportation , medication admin. Exam & Diagnostic Data Vital Signs and I&O Vital Signs Date Time Temp Pulse Resp B/P Pulse O2 O2 Flow FiO2 Ox Delivery Rate 08/08 2149 64 130/90 08/08 1642 98.5 58 16 134/84 96 Room Air 08/08 1026 68 134/92 08/08 1026 68 134/92 08/08 0800 97.7 68 18 134/92 99 Room Air 08/08 0130 54 130/90 08/08 0035 98.2 62 20 130/90 98 Room Air 08/07 2302 98.6 72 20 139/86 95 Room Air Intake & Output 08/08 1600 08/08 0800 08/08 0000 08/07 1600 08/07 0800 08/07 0000 Intake Total 1119.6 876 0 Output Total 650 100 Balance 469.6 776 0 Intake, IV 159.6 156 0 Intake, Oral 960 720 Number 0 Bowel Movements Output, Urine 650 100 Patient 175 lb Weight Physical Exam: Gen: The patient is in no acute distress HEENT: Normal nose, ears, and oropharynx. Pupils equal bilaterally. Conjunctiva normal. Neck: Supple with no JVD, no masses, and no thyromegaly Lungs: Clear to auscultation with normal respiratory effort Heart: RRR, S1, S2, no murmurs. No peripheral edema, 2+ pulses in the lower extremities bilaterally Abdomen: Soft, nontender, no masses. No hepatomegaly. No splenomegaly Extremities: No clubbing or cyanosis. Normal muscle strength in the upper and lower extremities. Skin: Normal skin turgor with no skin ulcers or lesions noted. Neuro: Cranial nerves intact. Sensation intact Psych: Alert and oriented 3 with appropriate affect Labs/Vini Results: Laboratory Tests 08/08 08/08 08/08 2208 1130 1130 Chemistry Sodium (137 - 145 mmol/L) 143 Potassium (3.5 - 5.1 mmol/L) 3.8 Chloride (98 - 107 mmol/L) 99 Carbon Dioxide (22 - 30 mmol/L) 33 H Anion Gap (5 - 16) 11 BUN (9 - 20 mg/dL) 13 Creatinine (0.7 - 1.2 mg/dL) 1.0 Estimated GFR (>60 ml/min) > 60 BUN/Creatinine Ratio (7 - 25 %) 13.0 Troponin I (<0.11 ng/ml) < 0.01 Coagulation PT (9.4 - 12.5 SEC) 23.0 H INR (0.90 - 1.17) 2.21 H APTT (25 - 37 SEC) Pending Cancelled > 120 *H Hematology CBC w Diff NO MAN DIFF REQ WBC (4.8 - 10.8 /CUMM) 3.7 L RBC (4.70 - 6.10 /CUMM) 4.34 L Hgb (14.0 - 18.0 G/DL) 12.6 L Hct (42 - 52 %) 38.1 L MCV (80.0 - 94.0 FL) 87.8 MCH (27.0 - 31.0 PG) 29.0 RDW (11.5 - 14.5 %) 14.7 H Plt Count (130 - 400 /CUMM) 91 L MPV (7.4 - 10.4 FL) 13.1 H Gran % (42.2 - 75.2 %) 40.0 L Lymphocytes % (20.5 - 51.1 %) 44.6 Monocytes % (1.7 - 9.3 %) 12.9 H Eosinophils % (0 - 5 %) 2.1 Basophils % (0.0 - 2.0 %) 0.4 Absolute Granulocytes (1.4 - 6.5 /CUMM) 1.5 Absolute Lymphocytes (1.2 - 3.4 /CUMM) 1.7 Absolute Monocytes (0.10 - 0.60 /CUMM) 0.5 Absolute Eosinophils (0.0 - 0.7 /CUMM) 0.1 Absolute Basophils (0.0 - 0.2 /CUMM) 0 PUBS MCHC (33.0 - 37.0 G/DL) 33.1 08/08 08/08 08/07 0400 0055 2055 Chemistry Troponin I (<0.11 ng/ml) < 0.01 Coagulation APTT (25 - 37 SEC) > 120 *H D-Dimer (70 - 232 ng/ml) < 200 08/07 08/07 1812 1706 Chemistry Sodium (137 - 145 mmol/L) 143 Potassium (3.5 - 5.1 mmol/L) 4.6 Chloride (98 - 107 mmol/L) 97 L Carbon Dioxide (22 - 30 mmol/L) 30 Anion Gap (5 - 16) 16 BUN (9 - 20 mg/dL) 21 H Creatinine (0.7 - 1.2 mg/dL) 1.3 H Estimated GFR (>60 ml/min) > 60 BUN/Creatinine Ratio (7 - 25 %) 16.2 Glucose (65 - 99 mg/dL) 77 Calcium (8.4 - 10.2 mg/dL) 10.2 Total Bilirubin (0.2 - 1.3 mg/dL) 0.8 AST (17 - 59 U/L) 54 ALT (21 - 72 U/L) 46 Alkaline Phosphatase (< 127 U/L) 53 Troponin I (<0.11 ng/ml) < 0.01 Total Protein (6.3 - 8.2 g/dL) 10.1 H Albumin (3.5 - 5.0 g/dL) 5.5 H Globulin (1.9 - 4.2 gm/dL) 4.6 H Albumin/Globulin Ratio (1.1 - 2.2 %) 1.2 Coagulation PT (9.4 - 12.5 SEC) 19.1 H INR (0.90 - 1.17) 1.83 H APTT (25 - 37 SEC) 27 Hematology CBC w Diff NO MAN DIFF REQ WBC (4.8 - 10.8 /CUMM) 6.2 RBC (4.70 - 6.10 /CUMM) 4.67 L Hgb (14.0 - 18.0 G/DL) 13.6 L Hct (42 - 52 %) 41.2 L MCV (80.0 - 94.0 FL) 88.3 MCH (27.0 - 31.0 PG) 29.1 RDW (11.5 - 14.5 %) 15.0 H Plt Count (130 - 400 /CUMM) Gran % (42.2 - 75.2 %) 62.6 Lymphocytes % (20.5 - 51.1 %) 29.2 Monocytes % (1.7 - 9.3 %) 6.7 Eosinophils % (0 - 5 %) 1.2 Basophils % (0.0 - 2.0 %) 0.3 Absolute Granulocytes (1.4 - 6.5 /CUMM) 3.9 Absolute Lymphocytes (1.2 - 3.4 /CUMM) 1.8 Absolute Monocytes (0.10 - 0.60 /CUMM) 0.4 Absolute Eosinophils (0.0 - 0.7 /CUMM) 0.1 Absolute Basophils (0.0 - 0.2 /CUMM) 0 PUBS MCHC (33.0 - 37.0 G/DL) 33.0 Toxicology Urine Opiates Screen (>2000 NG/ML) < 100.00 Methadone Screen (>300 NG/ML) < 40 Barbiturate Screen (>200 NG/ML) < 60 Ur Phencyclidine Scrn (>25 NG/ML) < 6.00 Amphetamines Screen (>1000 NG/ML) < 100 U Benzodiazepines Scrn (>200 NG/ML) < 85 Urine Cocaine Screen (>300 NG/ML) < 50 Urine Cannabis Screen (>50 NG/ML) < 5.00 Diagnostic Data EKG Results EKG tracing is independently reviewed, and reveals normal sinus rhythm at 74 with nonspecific T-wave abnormality in premature ventricular contraction CXR Results Negative Other Results CTA chest August 07, 2016: No evidence of pulmonary embolism. No acute abnormalities. Assessment/Plan Assessment/Plan Assessment: 1. CAD 2. Multiple venous thromboembolism 3. Deep vein thrombosis with progression the left lower extremity 4. Chest pain, rule out acute coronary syndrome Plan: * Agree with Lovenox 1 milligram/kilogram b.i.d. * Echocardiogram * Ruled out for myocardial infarction with negative cardiac enzymes * Continue statin * Continue metoprolol and lisinopril Consult Acknowledgment - Thank you for your consult request.
[2016-08-08 22:59] LABS: PTT 97 SEC (25-37)
[2016-08-09] VITALS: BP 130/90
--- NOTE | 2016-08-09 08:14 | PN- Housestaff ---
VIJAYA CLINE 08/09/16 0814: Subjective Follow-up For: Chest pain ruled out acute coronary syndrome Bilateral lower extremity DVT in the setting of aPLS Acute kidney injury-resolved Complaints: pain scale (0-10) Tele-Events Since Last Visit: Sinus rhythm Sinus bradycardia Rate 50-70 No acute events noticed on telemetry monitoring Subjective: Patient was seen and examined this morning. He is alert awake and oriented to time place and person. No acute events monitored overnight. He does complain mild lower extremity pain. Relieved with morphine. Reported trace swelling of lower extremities. However denied any calf tenderness. He denied any shortness of breath, chest pain, racing of heart, cough, hemoptysis. Denied any fever or chills, nausea, vomiting, abdominal pain, change in bladder or bowel habits. He remained afebrile. Heart rate 66, respiratory rate 20, blood pressure 100/60 , saturating at 95% on room air. He is willing to go home Review of Systems Constitutional: Denies: see HPI. Objective Last 24 Hrs of Vital Signs/I&O Vital Signs Date Time Temp Pulse Resp B/P Pulse O2 O2 Flow FiO2 Ox Delivery Rate 08/09 0950 100/66 08/09 0949 100/66 08/09 0840 97.5 66 20 96/70 95 Room Air 08/09 0000 98.0 64 20 130/90 94 08/08 2149 64 130/90 08/08 1642 98.5 58 16 134/84 96 Room Air Intake & Output 08/09 1600 08/09 0800 08/09 0000 Intake Total 608 872 Output Total 400 750 Balance 208 122 Intake, IV 128 152 Intake, Oral 480 720 Output, Urine 400 750 Physical Exam General Appearance: Alert, Oriented X3, Cooperative, No Acute Distress Skin: No Rashes, No Breakdown HEENT: Atraumatic, Mucous Membr. moist/pink Neck: Supple, No JVD Lymphatic: Cervical nl Cardiovascular: Regular Rate, Normal S1, Normal S2, No Murmurs Lungs: Normal Air Movement Abdomen: Normal Bowel Sounds, Soft, No Tenderness Extremities: No Clubbing, No Cyanosis, trace edema, no calf tenderness Vascular: Normal Pulses Current Medications: Current Medications Sig/Aly Start time Last Medication Dose Route Stop Time Status Admin Atorvastatin Calcium 40 MG DAILY 08/08 1000 AC 08/09 PO 0950 Benztropine Mesylate 2 MG BID 08/08 1000 AC 08/09 PO 0950 Clonazepam 1 MG .STK-MED ONE 08/08 2140 DC PO 08/08 214 Clonazepam 1 MG BID 08/07 2345 AC 08/09 PO 08/14 2344 0950 Cyclobenzaprine HCl 5 MG TIDPRN PRN 08/07 2345 AC 08/08 PO 1027 Divalproex Sodium 500 MG BID 08/07 2346 AC 08/09 PO 0950 Enoxaparin Sodium 80 MG BID 08/09 1100 AC 08/09 SC 1045 Folic Acid 1 MG DAILY 08/08 1000 AC 08/09 PO 0950 Heparin Sodium 25,000 UNIT Q24H 08/07 2045 AC 08/08 (Porcine) IV 2150 Sodium Chloride 500 ML Lisinopril 5 MG DAILY 08/08 1000 AC 08/09 PO 0949 Metoprolol Tartrate 25 MG BID 08/07 2347 AC 08/09 PO 0950 Morphine Sulfate 2 MG Q4-6 PRN PRN 08/07 2345 AC 08/08 IV 2320 Multivitamins 1 TAB DAILY 08/08 1000 AC 08/09 PO 0949 Omeprazole 40 MG DAILY AC 08/08 0700 AC 08/09 PO 0652 Oxybutynin Chloride 10 MG QPM 08/08 2200 AC 08/08 PO 2148 Paliperidone 6 MG AT BEDTIME 08/07 2345 AC 08/08 PO 2149 Quetiapine Fumarate 100 MG AT BEDTIME 08/08 0030 AC 08/08 PO 2149 Tramadol HCl 50 MG BID 08/07 2345 AC 08/09 PO 0950 Venlafaxine HCl 75 MG DAILY 08/08 1000 AC 08/09 PO 0950 Zolpidem Tartrate 10 MG .STK-MED ONE 08/08 2103 DC PO 08/08 210 Zolpidem Tartrate 10 MG QPM 08/08 0130 AC 08/08 PO 2149 Last 24 Hrs of Lab/Vini Results Last 24 Hrs of Labs/Mics: Laboratory Tests 08/09/16 0900: PT Cancelled, INR Cancelled 08/09/16 0900: PT 17.5 H, INR 1.68 H, APTT 50 H 08/08/168: APTT 97 H Assessment/Plan Assessment: Mr. Andrade is a 41-year-old gentleman with past medical history of multiple VTE, IVC filter coronary artery disease and stroke who was admitted for development of a DVT. Despite patient stating that he has been on warfarin and reporting good medical compliance patient continues to be developing thrombi. #DVT Patient presented to emergency department with a chief complaint of bilateral lower extremity pain. Venous Doppler of lower extremity was done - redemonstrated bilateral partially occlusive DVT, slightly improved within right lower extremity and slightly progressed within left lower extremity. Her chest angiogram was done to rule out pulmonary embolism. Chest x-ray was normal. * Since admission the patient has been on IV Heparin drip. * As per recommendations from underground electrician, started on Enoxaparin 1 mg/kg twice a day. * The IV heparin drip discontinued. * INR is 1.68 this morning * Planning to discharge patient on Lovenox 80 mg subcutaneous twice a day * Spoke with pharmacist and his insurance is going to cover the medication. * Advised to follow-up his underground electrician next week wednesday. #Depression/anxiety/bipolar/insomnia - Continue all home medication including venlafaxine/benztropine/clonazepam/ Depakote/Seroquel/zolpidem. #Prerenal FLO-resolved BUN has normalized and creatinine 1.0. #Hypertension We will continue metoprolol and lisinopril #Hyperlipidemia Continue high-dose statin #GERD We'll continue omeprazole #Diet - heart healthy diet #DVT prophylaxis- ALPS/heparin #CODE STATUS-full code Problem List: 1. Atypical chest pain 2. DVT, bilateral lower limbs Pain Ratin Pain Location: b/l lower extremity Pain Goal: Remain pain free Pain Plan: Tylenol Tramadol Tomorrow's Labs & Rationales: none ANGEL VELAZQUEZ MD 08/09/16 1023: Attending MD Review Statement Attending Statement Attending MD Statement: examined this patient, discuss w/resident/PA/AUTO CLUB TRAVEL COUNSELOR, agreed w/resident/PA/AUTO CLUB TRAVEL COUNSELOR, reviewed EMR data (avail), discussed with nursing, discussed with case mgmt, amended to note Attending Assessment/Plan: Patient seen and examined. Resting comfortably and not in acute distress. No events overnight on telemetry. Denies any further chest pain. Denies shortness of breath or palpitations. Reports that his lower extremity pain is improved. He did receive morphine overnight for pain control. He is currently not requested analgesic medications for pain. On examination he has trace lower extremity swelling. He has no calf tenderness. Distal pulses are palpable. Hematology consultation appreciated. Recommendations noted. At present his INR is subtherapeutic as his Coumadin was held on admission. Patient is very eager to be discharged home today stating that he will sign out AGAINST MEDICAL ADVICE rebound released. Options of anticoagulation were discussed with him. In view of his significant is subtherapeutic INR today would recommend anticoagulation with Lovenox on today follows up with his underground electrician next week. Problems: 1. Chest pain; now resolved. Coronary syndrome ruled out. 2. Bilateral lower extremity DVT secondary to antiphospholipid syndrome. Chronicity of progression noted on Doppler unkown. 3. FLO; resolved Recommendations: -Follow-up with the cardiology service in any further cardiac workup is required at this time. -Discharge patient on Lovenox 1 mg per KG subcutaneous twice daily. Please provide prescriptions and call his pharmacy to ensure that this medication will be covered. -Patient has an appointment to follow-up with his underground electrician Dr. YEN next week Wednesday. -He is denying any pain currently and has been advised to utilize his tramadol as needed upon discharge.
--- NOTE | 2016-08-09 08:32 | Patient Discharge Instructions ---
Discharge Instructions General Discharge Information You were seen/treated for: DVT RULED OUT ACS You had these procedures: NONE Watch for these problems: WORSENING LOWER EXTREMITY PAIN Special Instructions: FOLLOW UP WITH PRIMARY CARE DOCTOR IN ONE WEEK Diet Continue normal diet: Yes Activity Full Activity/No Limits: No Acute Coronary Syndrome Inclusion Criteria At DC or during hospital stay patient has or had the following: ACS DIAGNOSIS No Discharge Core Measures Meds if any: Prescribed or Continued at Discharge Meds if any: NOT Prescribed or Continued at Discharge Congestive Heart Failure Inclusion Criteria At DC or during hospital stay patient has or had the following: CHF DIAGNOSIS No Discharge Core Measures Meds if any: Prescribed or Continued at Discharge Meds if any: NOT Prescribed or Continued at Discharge Cerebrovascular accident Inclusion Criteria At DC or during hospital stay patient has or had the following: CVA/TIA Diagnosis No Discharge Core Measures Meds if any: Prescribed or Continued at Discharge Meds if any: NOT Prescribed or Continued at Discharge Venous thromboembolism Inclusion Criteria VTE Diagnosis Yes VTE Type Deep Venous Thrombosis VTE Confirmed by (Test) EXT BILATERAL VENOUS DOPP Discharge Core Measures - Per Current guidelines, there needs to be overlap - treatment for the first 5 days of Warfarin therapy. - If discharged on Warfarin prior to 5 days of - overlap therapy, the patient will need to be - assessed for post discharge needs including - *Post discharge parental anticoagulation - *Warfarin and/or parental anticoagulation education - *Follow up date to check INR post discharge At least 5 days overlap therapy as Inpatient Yes Meds if any: Prescribed or Continued at Discharge Note: Overlap Therapy is Warfarin and Anticoagulant Meds if any: NOT Prescribed or Continued at Discharge
[2016-08-09 08:40] VITALS: BP 96/70
[2016-08-09 09:50] VITALS: BP 100/66
[2016-08-09 09:50] LABS: PT 17.5 SEC (9.4-12.5); PTT 50 SEC (25-37)
[2016-08-09] MEDS ORDERED: LOVENOX80 MG/0.1 SC (10:54)
--- NOTE | 2016-08-09 11:11 | PN- Cardiology ---
Subjective Subjective: The patient reports that he is feeling well. No further chest pain. No palpitations. No diaphoresis. Objective Vital Signs and I&Os Vital Signs Date Time Temp Pulse Resp B/P Pulse O2 O2 Flow FiO2 Ox Delivery Rate 08/09 0950 100/66 08/09 0949 100/66 08/09 0840 97.5 66 20 96/70 95 Room Air 08/09 0000 98.0 64 20 130/90 94 08/08 2149 64 130/90 08/08 1642 98.5 58 16 134/84 96 Room Air Intake & Output 08/09 1600 08/09 0800 08/09 0000 08/08 1600 08/08 0800 08/08 0000 Intake Total 077 294 9536.6 876 0 Output Total 400 750 650 100 Balance 208 122 469.6 776 0 Intake, IV 128 152 159.6 156 0 Intake, Oral 480 720 960 720 Number 0 Bowel Movements Output, Urine 400 750 650 100 Patient 175 lb Weight Physical Exam: Gen: The patient is in no acute distress HEENT: Normal nose, ears, and oropharynx. Pupils equal bilaterally. Conjunctiva normal. Neck: Supple with no JVD, no masses, and no thyromegaly Lungs: Clear to auscultation with normal respiratory effort Heart: RRR, S1, S2, no murmurs. No peripheral edema, 2+ pulses in the lower extremities bilaterally Abdomen: Soft, nontender, no masses. No hepatomegaly. No splenomegaly Extremities: No clubbing or cyanosis. Normal muscle strength in the upper and lower extremities. Skin: Normal skin turgor with no skin ulcers or lesions noted. Neuro: Cranial nerves intact. Sensation intact Current Medications: Current Medications Sig/Aly Start time Last Medication Dose Route Stop Time Status Admin Atorvastatin Calcium 40 MG DAILY 08/08 1000 AC 08/09 PO 0950 Benztropine Mesylate 2 MG BID 08/08 1000 AC 08/09 PO 0950 Clonazepam 1 MG .STK-MED ONE 08/08 2140 DC PO 08/08 2141 Clonazepam 1 MG BID 08/07 2345 AC 08/09 PO 08/14 2344 0950 Cyclobenzaprine HCl 5 MG TIDPRN PRN 08/07 2345 AC 08/08 PO 1027 Divalproex Sodium 500 MG BID 08/076 AC 08/09 PO 0950 Enoxaparin Sodium 80 MG BID 08/09 1100 AC SC Folic Acid 1 MG DAILY 08/08 1000 AC 08/09 PO 0950 Heparin Sodium 25,000 UNIT Q24H 08/07 2045 AC 08/08 (Porcine) IV 2150 Sodium Chloride 500 ML Lisinopril 5 MG DAILY 08/08 1000 AC 08/09 PO 0949 Metoprolol Tartrate 25 MG BID 08/07 2347 AC 08/09 PO 0950 Morphine Sulfate 2 MG Q4-6 PRN PRN 08/07 2345 AC 08/08 IV 2320 Multivitamins 1 TAB DAILY 08/08 1000 AC 08/09 PO 0949 Omeprazole 40 MG DAILY AC 08/08 0700 AC 08/09 PO 0652 Oxybutynin Chloride 10 MG QPM 08/08 2200 AC 08/08 PO 2148 Paliperidone 6 MG AT BEDTIME 08/07 2345 AC 08/08 PO 2149 Quetiapine Fumarate 100 MG AT BEDTIME 08/08 0030 AC 08/08 PO 2149 Tramadol HCl 50 MG BID 08/07 2345 AC 08/09 PO 0950 Venlafaxine HCl 75 MG DAILY 08/08 1000 AC 08/09 PO 0950 Zolpidem Tartrate 10 MG .STK-MED ONE 08/08 2103 DC PO 08/08 210 Zolpidem Tartrate 10 MG QPM 08/08 0130 AC 08/08 PO 2149 Results Last 48 Hrs of Labs/Mics: Laboratory Tests 08/09/16 0900: PT Cancelled, INR Cancelled 08/09/16 0900: PT 17.5 H, INR 1.68 H, APTT 50 H 08/08/168: APTT 97 H 08/08/16 1130: APTT Cancelled 08/08/16 1130: Anion Gap 11, Estimated GFR > 60, BUN/Creatinine Ratio 13.0, Troponin I < 0.01, PT 23.0 H, INR 2.21 H, APTT > 120 *H, CBC w Diff NO MAN DIFF REQ, RBC 4.34 L, MCV 87.8, MCH 29.0, RDW 14.7 H, MPV 13.1 H, Gran % 40.0 L, Lymphocytes % 44.6 , Monocytes % 12.9 H, Eosinophils % 2.1, Basophils % 0.4, Absolute Granulocytes 1.5, Absolute Lymphocytes 1.7, Absolute Monocytes 0.5, Absolute Eosinophils 0.1, Absolute Basophils 0, PUBS MCHC 33.1 08/08/16 0400: APTT > 120 *H 08/08/16 0055: Troponin I < 0.01 08/07/16 2055: D-Dimer < 200 08/07/16 1812: Anion Gap 16, Estimated GFR > 60, BUN/Creatinine Ratio 16.2, Glucose 77, Calcium 10.2, Total Bilirubin 0.8, AST 54, ALT 46, Alkaline Phosphatase 53, Troponin I < 0.01, Total Protein 10.1 H, Albumin 5.5 H, Globulin 4.6 H, Albumin/Globulin Ratio 1.2, PT 19.1 H, INR 1.83 H, APTT 27, CBC w Diff NO MAN DIFF REQ, RBC 4.67 L, MCV 88.3, MCH 29.1, RDW 15.0 H, Gran % 62.6, Lymphocytes % 29.2, Monocytes % 6.7, Eosinophils % 1.2, Basophils % 0.3, Absolute Granulocytes 3.9, Absolute Lymphocytes 1.8, Absolute Monocytes 0.4, Absolute Eosinophils 0.1, Absolute Basophils 0, PUBS MCHC 33.0 08/07/16 1706: Urine Opiates Screen < 100.00, Methadone Screen < 40, Barbiturate Screen < 60, Ur Phencyclidine Scrn < 6.00, Amphetamines Screen < 100, U Benzodiazepines Scrn < 85, Urine Cocaine Screen < 50, Urine Cannabis Screen < 5.00 Assessment/Plan Assessment/Plan Assessment: 1. CAD 2. Multiple venous thromboembolism secondary to antiphospholipid antibody syndrome 3. Deep vein thrombosis with progression the left lower extremity 4. Chest pain, rule out acute coronary syndrome Plan: * Lovenox 1 mg/kg subcutaneous every 12 hours * Myocardial infarction has been ruled out with negative troponin 2. * Echocardiogram and nuclear stress test as outpatient. * Follow up in the office in one week, at which time outpatient testing will be arranged. Continue telemetry? Yes
--- NOTE | 2016-08-09 20:50 | Discharge Summary ---
Visit Information Visit Dates Admission Date: 08/07/16 Discharge Date: 08/09/16 Hospital Course Course Attending Physician: KESHIA REYES MD Primary Care Physician: KIMBERLY TABARES MD Other Care Providers: DR. JANET GONZALES Consulting Request: Consulting Specialty: Cardiology Hospital Course: 31-year-old man with past medical history of DVT with IVC filter, questionable antiphospholipid syndrome, CVA, 2 episodes of DC, CABG?, Mitral valve replacements, IV drug abuse, hepatitis C (treated) came with chief complaint of b/l leg pain and chest pain for 1day. He has similar presentation almost weekly. He has been to the [facility] weekly since at least May 2016 for similar symptoms. He was last seen by Dr. Felix Yen in November 2015. His anticoagulation was switched at that time to Xarelto. Per the patient, he failed that and was placed back on warfarin. He has been taking it 5 mg warfarin every day. vital signs - blood pressure 154/88, RR 20, ND 62, O2 saturation 99% unremarkable temp 96.2 Hemoglobin 13.6, creatinine 1.3, INR 1.83, d-dimer less than 200 eKG NSR, no acute ST-T changes comparing to previous EKG,PVC On admission, he was evaluated with chest CTA and lower extremity US. Chest CTA demonstrated no evidence of PE. The lower extremity doppler US redemonstrated bilateral partially occlusive deep venous thrombosis, slightly improved within the right lower extremity and slightly progressed within the left lower extremity when compared to November 2015. Deep vein thrombosis/older DVT/failure on warfarin Patient presented with worsening bilateral lower extremity pain. Denied calf tenderness. D dimers less than 200 on admission. Bilateral lower extremity Doppler showed deep vein thrombosis which is progressing. He was on IV heparin for a day and bridged with Lovenox. INR 1.68 at the time of discharge. He did receive subcutaneous Lovenox 80 mg twice a day and he was discharged on Lovenox. Patient has an appointment to follow-up with his crm marketing executive Dr. YEN next week Wednesday. Chest pain We ruled out acute coronary syndrome. Serial troponins and EKGs were negative. As he is allergic to aspirin he was on Plavix, metoprolol, statins, lisinopril for coronary artery disease. Acute kidney injury Hydrated with IV fluids at 100 mL per hour for 1 L. Repeat kidney function tests were normal. Depression Continued venlafaxine anxiety Continued clonazepam Bipolar disorder Continued valproate, seroquel GERD Continued omeprazole Insomnia Continued zolpedam DVT prophylaxis-heparin IV Full code Heart healthy diet on tramadol for pain Complications: NONE Allergies: Coded Allergies: hydrocodone (PER PT FEELS DIZZY 06/03/16) ketorolac (From TORADOL) (PER PT "FEEL PAIN AND SHAKEY" 06/03/16) nitroglycerin (From NITRO-BID) (PER PT "MY BODY FEELS FUNNY AND MY HEAD GONNA EXPLODE UP" 06/03/16) Significant Procedures: NONE Pertinent Lab Results: DOPPLER ULS LOWER EXT IMPRESSION: Redemonstrated bilateral partially occlusive deep venous thrombosis, slightly improved within the right lower extremity and slightly progressed within the left lower extremity. CXR - NORMAL CHEST CTA IMPRESSION: No evidence of pulmonary embolism. No acute change of the chest. Disposition Summary Disposition Principal Diagnosis: Multiple venous thromboembolism secondary to antiphospholipid antibody syndrome Deep vein thrombosis with progression the left lower extremity Chest pain, ruled out acute coronary syndrome Additional Diagnosis: cad status post stent placement Discharge Disposition: home or self care Discharge Instructions General Discharge Information Code Status: Full Code Patient's Diet: As tolerated Patient's Activity: As tolerated Follow-Up Instructions/Appts: FOLLOW UP WITH PRIMARY CARE DOCTOR IN ONE WEEK Patient has an appointment to follow-up with his crm marketing executive Dr. YEN next week Wednesday. 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 Medications at Discharge Discharge Medications: Stop taking the following medications: Warfarin Sodium (Warfarin Sodium) 5 MG TABLET ORAL 5 PM Qty = 90 Continue taking these medications: Metoprolol Tartrate (Metoprolol Tartrate) 25 MG TABLET 1 Tablet ORAL TWICE DAILY Paliperidone (Invega) 6 MG TAB.ER.24 1 Tablet ORAL Every night VENLAFAXINE HCL (Venlafaxine HCl ER) 75 MG CER 1 Capsule ORAL DAILY Qty = 30 Comments: PER PT AND MED LIST [facility] Esomeprazole (Nexium) 40 MG CAP 1 Packet ORAL DAILY Qty = 30 Comments: PER PT MED LIST [facility] Clonazepam (Clonazepam) 1 MG TABLET 1 Tablet ORAL TWICE DAILY Zolpidem Tartrate (Ambien 10MG) 10 MG TAB 1 Tablet ORAL Every night Qty = 30 Comments: [facility] [place] Atorvastatin Calcium (Lipitor) 40 MG TAB 1 Tablet ORAL DAILY Qty = 30 Comments: LAST GIVEN 12/01/15 @ 0830 Benztropine Mesylate (Benztropine Mesylate) 2 MG TABLET 1 Tablet ORAL TWICE DAILY Quetiapine Fumarate (Seroquel) 100 MG TAB 1 Tablet ORAL TAKE AT BEDTIME Qty = 30 Comments: [facility] [place] Divalproex Sodium (Divalproex Sodium ER) [address] 1 Tablet ORAL TWICE DAILY Qty = 60 Comments: [facility] [place] Lisinopril (Prinivil) 5 MG TAB 1 Tablet ORAL DAILY Comments: PER PT VERBALLY CONFIRMS 5MG DAILY LACTOSE-REDUCED FOOD (Ensure Plus 237 Ml) 237 ML LIQ 237 Milliliters ORAL DAILY Qty = 02693 Comments: PER PT 1 CAN TID CYCLOBENZAPRINE HCL (Cyclobenzaprine Hydrochloride) 5 MG TAB 1 Tablet ORAL THREE TIMES DAILY as needed for MUSCLE SPASMS Qty = 90 Comments: PER PT Solifenacin Succinate (Vesicare) 10 MG TAB 1 Tablet ORAL TAKE AT BEDTIME Qty = 90 Comments: PER PT Mv,Min #10/FA/D3/Alip Acid/Lut (Strovite One Caplet) 1 MG-1,000 UNIT-15 MG-5 MG TABLET 1 Tablet ORAL DAILY Qty = 30 Comments: PER PT Tramadol HCl (Tramadol HCl ER) 100 MG TAB.ER.24H 1 Tablet ORAL DAILY Qty = 60 Comments: PER PT Folic Acid (Folic Acid) 1 MG TABLET 1 Tablet ORAL DAILY Qty = 90 Comments: PER PT Start taking the following new medications: Enoxaparin Sodium (Lovenox) 80 MG/0.8 ML SYRINGE 80 Milligram Inject into fatty tissue TWICE DAILY Days = 30 No Refills Copies To: RAYSA QUILES,KIMBERLY
== END 2016-08-09 12:55 | DRG 300 ==
LOC: ERH 16:08 → ERHI 20:26 → 1NO 20:26
PROVIDERS: Emergency Medicine; Internal Medicine; Physician Assistant; Student in an Organized Health Care Education/Training Program; ADMIT Internal Medicine
DX: I82.432 Acute embolism and thrombosis of left popliteal vein (principal); N17.9 Acute kidney failure, unspecified; D68.61 Antiphospholipid syndrome; I82.413 Acute embolism and thrombosis of femoral vein, bilateral; R07.9 Chest pain, unspecified; I25.2 Old myocardial infarction; I25.10 Atherosclerotic heart disease of native coronary artery without angina pectoris; Z95.1 Presence of aortocoronary bypass graft; B18.2 Chronic viral hepatitis C; Z86.718 Personal history of other venous thrombosis and embolism; I10 Essential (primary) hypertension; E78.5 Hyperlipidemia, unspecified; F31.9 Bipolar disorder, unspecified; K21.9 Gastro-esophageal reflux disease without esophagitis; Z87.891 Personal history of nicotine dependence
CPT/HCPCS: 1NSP; 36415; 82436; 93005; 93010; 93970; 96372; 96374; G0479; J1644; J1650; J3490

== ENCOUNTER 2016-11-14 14:13 | Emergency (ER) | payer OTHER ==
[~2016-11-14] VITALS: Ht 175.3 cm; Wt 79.4 kg
[~2016-11-14 14:13] MED LIST changes: +FOLIC ACID1 M1 PO; +LOVENOX80 MG/0.1 SC; +OXYCODONE-ACET1 EACH PO; +STROVITE ONE C1 EACH PO
--- NOTE | 2016-11-14 14:44 | ED CARDIAC/CP/PALPITATIONS ---
History of Present Illness General Chief Complaint: Chest Pain Stated Complaint: BIBA CP Source: patient, old records, EMS Exam Limitations: no limitations Vital Signs & Intake/Output Vital Signs & Intake/Output Vital Signs Date Time Temp Pulse Resp B/P Pulse O2 O2 Flow FiO2 Ox Delivery Rate 11/14 1627 Room Air 11/14 1440 98.1 60 18 113/74 96 Room Air Room Air Allergies Coded Allergies: hydrocodone (PER PT FEELS DIZZY 06/03/16) ketorolac (From TORADOL) (PER PT "FEEL PAIN AND SHAKEY" 06/03/16) nitroglycerin (From NITRO-BID) (PER PT "MY BODY FEELS FUNNY AND MY HEAD GONNA EXPLODE UP" 06/03/16) Reconcile Medications Atorvastatin Calcium (Lipitor) 40 MG TAB 1 TAB PO DAILY CHOLESTEROL (Reported ) Benztropine Mesylate 2 MG TABLET 1 TAB PO BID MENTAL HEALTH (Reported) Clonazepam 1 MG TABLET 1 TAB PO BID ANXIETY (Reported) CYCLOBENZAPRINE HCL (Cyclobenzaprine Hydrochloride) 5 MG TAB 1 TAB PO TID PRN MUSCLE SPASMS (Reported) Divalproex Sodium (Divalproex Sodium ER) [address] 1 TAB PO BID MENTAL HEALTH (Reported) Enoxaparin Sodium (Lovenox) 80 MG/0.8 ML SYRINGE 80 MG SC BID dvt Esomeprazole (Nexium) 40 MG CAP 1 PAC PO DAILY GI (Reported) Folic Acid 1 MG TABLET 1 TAB PO DAILY SUPPLEMENT (Reported) LACTOSE-REDUCED FOOD (Ensure Plus 237 Ml) 237 ML LIQ 237 ML PO DAILY SUPPLEMENT (Reported) Lisinopril (Prinivil) 5 MG TAB 1 TAB PO DAILY BP (Reported) Metoprolol Tartrate 25 MG TABLET 1 TAB PO BID HEART (Reported) Mv,Min #10/FA/D3/Alip Acid/Lut (Strovite One Caplet) 1 MG-1,000 UNIT-15 MG-5 MG TABLET 1 TAB PO DAILY SUPPLEMENT (Reported) Paliperidone (Invega) 6 MG TAB.ER.24 1 TAB PO QPM MENTAL HEALTH (Reported) Quetiapine Fumarate (Seroquel) 100 MG TAB 1 TAB PO QHS SLEEP (Reported) Solifenacin Succinate (Vesicare) 10 MG TAB 1 TAB PO QHS BLADDER (Reported) Tramadol HCl (Tramadol HCl ER) 100 MG TAB.ER.24H 1 TAB PO DAILY PAIN ( Reported) VENLAFAXINE HCL (Venlafaxine HCl ER) 75 MG CER 1 CAP PO DAILY MENTAL HEALTH ( Reported) Zolpidem Tartrate (Ambien 10MG) 10 MG TAB 1 TAB PO QPM SLEEP (Reported) Triage Note: TRIAGE: 41 Y/O MALE [place] [facility] FROM [place] C/O CHEST PAIN 04/18. EKG COMPLETED. * ALLERGY TO NITRO, ASPIRIN, TORODOL. * THE NEED AN ULTRASOUND MACHINE TO GIVE ME AN IV. Triage Nurses Notes Reviewed? yes Onset: Abrupt Duration: day(s): (1) Timing: multiple episodes today Location: central Activities at Onset: none Prior Chest Pain/Card Workup: cardiac cath Aspirin Today: no aspirin today Associated Symptoms: diaphoresis HPI: 41 year old male presents to the ER for chief complaint of left sided chest pain since last night, diaphoresis, not feeling well. He arrives via EMS from [facility]. He was not given any medications because he reported allergies to aspirin and nitro. History of similar symptoms in the past. He states he has a cardiac history, reports previous IA, hTN. No cough, fever, chills, sob. Denies any travel, immobilization. Past History Travel History Traveled to [place] past 21 day No Medical History Any Pertinent Medical History? 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 FATHER (Cardiac disease). FATHER (Stroke/CVA). Hx Contributory? No Review of Systems Review of Systems Constitutional: Reports: diaphoresis. EENTM: Reports: no symptoms. Respiratory: Denies: cough, short of breath. Cardiovascular: Reports: chest pain. GI: Denies: abdominal pain. Genitourinary: Reports: no symptoms. Musculoskeletal: Reports: no symptoms. Skin: Reports: no symptoms. Neurological/Psychological: Reports: anxiety. Hematologic/Endocrine: Denies: bruising, bleeding, polyuria, polydipsia. Immunologic/Allergic: Denies: splenectomy. All Other Systems: Reviewed and Negative Physical Exam Physical Exam General Appearance: alert, awake, anxious, mild distress, thin Head: atraumatic Eyes: Bilateral: PERRL, EOMI. Ears, Nose, Throat: normal pharynx, hearing grossly normal Neck: normal inspection, supple, full range of motion Respiratory: normal breath sounds, chest non-tender, no respiratory distress Cardiovascular: regular rate/rhythm Peripheral Pulses: 2+ radial (R), 2+ radial (L) Gastrointestinal: normal bowel sounds, soft Extremities: normal inspection, normal range of motion, no edema Neurologic/Psych: no motor/sensory deficits, awake, alert, oriented x 3, anxious Skin: intact, normal color, warm/dry Core Measures ACS in differential dx? Yes ASA ordered for poss ACS? Yes-ordered Severe Sepsis Present: No Septic Shock Present: No Progress Differential Diagnosis: AMI, aortic dissection, CHF/pulm edema, costochondritis, musculoskeletal pain, myocarditis, pericarditis, pneumonia, pneumothorax, pulmonary embolism, unstable angina Plan of Care: Orders Procedure Date/time Status Telemetry/Vice President Of Human Resources 11/14 1516 Active URINE DRUGS OF ABUSE 11/14 1501 Active TROPONIN LEVEL 11/14 1501 Complete COMPREHENSIVE METABOLIC PANEL 11/14 1501 Complete CREATINE PHOSPHOKINASE 11/14 1501 Complete CBC WITHOUT DIFFERENTIAL 11/14 1501 Complete EKG 11/14 1414 Active Laboratory Tests 11/14/16 1613: Anion Gap 8, Estimated GFR > 60, BUN/Creatinine Ratio 13.3, Glucose 79, Calcium 8.9, Total Bilirubin 0.3, AST 16 L, ALT 29, Alkaline Phosphatase 42, Creatine Kinase 84, Troponin I < 0.01, Total Protein 6.9, Albumin 3.7, Globulin 3.2, Albumin/Globulin Ratio 1.2, CBC w Diff NO MAN DIFF REQ, RBC 4.00 L, MCV 87.6, MCH 29.3, RDW 14.4, MPV 11.3 H, Gran % 60.9, Lymphocytes % 28.4, Monocytes % 9.1, Eosinophils % 1.4, Basophils % 0.2, Absolute Granulocytes 3.1, Absolute Lymphocytes 1.4, Absolute Monocytes 0.5, Absolute Eosinophils 0.1, Absolute Basophils 0, PUBS MCHC 33.5 EKG, LABS, TELE MONITOR, CXR ORDERED. PATIENT WITHOUT SIGNIFICANT ALLERGY TO ASPIRIN. ASPIRIN ORDERED. NO RELIEF REPORTED WITH ASPIRIN. IV TYLENOL ORDERED. (KENNY QUILES,HUMBLE) Initial ED EKG: NSR Rhythm Strip: normal sinus rhythm Departure Departure Time of Disposition: 1714 Disposition: HOME OR SELF CARE Condition: Stable Clinical Impression Primary Impression: Chest pain at rest Referrals: RAYSA QUILES,KIMBERLY (PCP/Family) Additional Instructions: FOLLOW UP WITH YOUR DOCTOR IN THE OFFICE. CONTINUE YOUR REGULARLY PRESCRIBED MEDICATIONS. RETURN NEEDED. Departure Forms: Customer Survey General Discharge Information Critical Care Note Critical Care Note Critical Care Time: non-applicable
[2016-11-14 16:23] LABS: ABSOLUTE BASOPHIL COUNT 0 /CUMM (0.0-0.2); ABSOLUTE EOSINOPHIL COUNT 0.1 /CUMM (0.0-0.7); ABSOLUTE GRANULOCYTE CT 3.1 /CUMM (1.4-6.5); ABSOLUTE LYMPH COUNT 1.4 /CUMM (1.2-3.4); ABSOLUTE MONOCYTE COUNT 0.5 /CUMM (0.10-0.60); BASOPHIL % 0.2 % (0.0-2.0); EOSINOPHIL % 1.4 % (0-5); GRANULOCYTE % 60.9 % (42.2-75.2); MEAN CORPUSCULAR HGB 29.3 PG (27.0-31.0); MEAN CORPUSCULAR HGB CONC 33.5 G/DL (33.0-37.0); MEAN CORPUSCULAR VOLUME 87.6 FL (80.0-94.0); MEAN PLATELET VOLUME 11.3 FL (7.4-10.4); PLATELET COUNT 118 /CUMM (130-400); RBC DISTRIBUTION WIDTH 14.4 % (11.5-14.5); WHITE BLOOD CELL COUNT 5.1 /CUMM (4.8-10.8)
[2016-11-14 17:35] VITALS: BP 125/77
== END 2016-11-14 17:36 ==
LOC: ERH 14:13
PROVIDERS: Emergency Medicine
DX: R07.9 Chest pain, unspecified (principal)
CPT/HCPCS: 80307; 93005; 93010; 96374; J0131